=== PATIENT | female | born 1950 | race Caucasian/White ===

== ENCOUNTER 2022-10-02 19:06 | Inpatient (IN) ==
--- NOTE | 2022-10-02 20:04 | Internal Med History&Physical ---
HPI History of Present Illness Patient information: Note initiated : 10/02/22 at 8:01 pm Service Date, if different from initiated Date: [] Patient: Lucero Magallanes a 72 y/o F admitted on for referred for surgery. Chief Complaint: [right lower leg swelling and pain] Chief complaint: right lower leg swelling and pain History of present illness: Ms. Magallanes is a 72 year old F history of prediabetes, essential hypertensions, d yslipidemia, COPD, hypothyroidism, chronic kidney disease stage III, presenting with at least a month history of the right worse than left lower leg swelling and pain. She was in Dr. Chapa office earlier today and she was being referred to come to the hospital for surgery including incision and drainage. She is coming of 10 out of 10 pain of her right lower leg. She denies any fever chills or diaphoresis. There was a recent wound culture growing Staph aureus as well as Pseudomonas aeruginosa. Vital signs currently significant for tachycardia heart rate in the low 1 teens. Constitutional Constitutional: Absent chills, excessive sweating, fatigue, fever(s) or weakness EENT Eyes: Absent blurry vision, change in vision, loss of vision or other visual disturbances Ears: Absent decreased hearing or tinnitus Nose, mouth and throat: Absent abnormal hearing, dry mouth, headache(s), nasal congestion or sore throat Cardiovascular Cardiovascular: Absent chest pain, chest pain at rest, edema, irregular heart rhythm or palpatations Respiratory Respiratory: Absent cough, dyspnea or wheezing Gastrointestinal Gastrointestinal: Absent abdominal pain, constipation, diarrhea, nausea or vomiting Musculoskeletal Musculoskeletal: Absent back pain, deformity, limited range of motion, muscle cramps, muscle weakness or numbness Additional comments: Right lower leg pain Integumentary Integumentary: Present lesions, rash and wounds Neurological Neurological: Absent focal weakness, headache(s) or numbness Psychiatric Psychiatric: Absent anxiety, depression or hallucinations PFSH PFSH All Active Problems (Updated 10/02/22 @ 20:09 by Mark Williamson MD) Chronic kidney disease (CKD) stage G3a/A1, moderately decreased glomerular filtration rate (GFR) between 45-59 mL/min/1.73 square meter and albuminuria creatinine ratio less than 30 mg/g (Acute) Grimes classified according to extent of body surface involved (Acute) Large breasts (Acute) COPD (chronic obstructive pulmonary disease) (Chronic) Prediabetes (Chronic) Hypothyroidism (Chronic) Cellulitis (Chronic) Costochondritis (Chronic) Chest pain (Chronic) BMI greater than 40 (Chronic) Bartholin's cyst (Chronic) Vaginal candidiasis (Chronic) Insulin resistance (Chronic) Irregular cardiac rhythm (Chronic) Glaucoma (Chronic) Venereal wart (Chronic) Dysuria (Chronic) Anxiety (Chronic) Peripheral vascular disease, unspecified (Chronic) Depression (Chronic) Urinary incontinence (Chronic) Unspecified vitamin D deficiency (Chronic) Arthralgia (Chronic) Allergic rhinitis (Chronic) Personal history of colonic polyps (Chronic) Snoring (Chronic) Urinary frequency (Chronic) Lumbar back pain with radiculopathy affecting lower extremity (Chronic) Hyperlipidemia (Chronic) Encounter for long-term (current) use of other medications (Chronic) Menopausal menorrhagia (Chronic) Insomnia (Chronic) Neuralgia (Chronic) GERD (gastroesophageal reflux disease) (Chronic) Smoker (Chronic) Hypertension (Chronic) Menopausal symptoms (Chronic) IBS (irritable bowel syndrome) (Chronic) Edema (Chronic) Lumbar radiculopathy (Chronic) Other specified irregular menstruation (Chronic) Fatigue (Chronic) Cervical dysplasia (Chronic) Metabolic syndrome (Chronic) Hip pain (Chronic) Sleep apnea, obstructive (Chronic) Elbow pain, left (Acute) Acute pain of right shoulder due to trauma (Acute) Sprain of shoulder and upper arm (Acute) Lumbar back pain with radiculopathy affecting left lower extremity (Acute) Muscle spasm of back (Acute) Chronic pain (Chronic) Lumbar spondylosis (Chronic) Bronchitis (Chronic) Obesity (Chronic) Osteoarthritis (Chronic) Rectal bleeding (Acute) Constipation (Acute) Lumbar spondylolysis (Chronic) Lumbar stenosis with neurogenic claudication (Chronic) Sciatica of left side (Chronic) Anemia (Acute) Myofascial pain (Acute) Right upper quadrant abdominal abscess (Acute) Radiculopathy, lumbar region (Chronic) Cyst of lumbar facet joint (Acute) Greater trochanteric bursitis of right hip (Chronic) Cramp of muscle of left upper extremity (Acute) Weakness of left hand (Acute) Hand cramps (Acute) New onset of congestive heart failure (Acute) Dyspnea (Acute) Cellulitis (Acute) Compromised renal function (Acute) OAB (overactive bladder) (Chronic) Urge incontinence (Chronic) Medical History Allergic rhinitis Anxiety Arthralgia Bartholin's cyst abscess BMI greater than 40 Bronchitis Cellulitis Cervical dysplasia Chest pain Chronic pain COPD (chronic obstructive pulmonary disease) Costochondritis Cyst of lumbar facet joint Depression Dysuria Edema Encounter for long-term (current) use of other medications Fatigue GERD (gastroesophageal reflux disease) Glaucoma Greater trochanteric bursitis of right hip Hand cramps Hip pain Hyperlipidemia Hypertension Hypothyroidism IBS (irritable bowel syndrome) Insomnia Insulin resistance Irregular cardiac rhythm Lumbar back pain with radiculopathy affecting lower extremity Lumbar radiculopathy Lumbar spondylolysis Lumbar spondylosis Lumbar stenosis with neurogenic claudication Menopausal menorrhagia Menopausal symptoms Metabolic syndrome Neuralgia Obesity Osteoarthritis Other specified irregular menstruation Peripheral vascular disease, unspecified Personal history of colonic polyps Prediabetes Radiculopathy, lumbar region Sciatica of left side Smoker Snoring Unspecified vitamin D deficiency Urinary frequency Urinary incontinence Vaginal candidiasis Venereal wart Surgical History History of appendectomy History of cataract surgery Cataract and glaucoma surgery in 10/2015 Left eye surgery 02/2017 History of colonoscopy (~2006) History of colposcopy cryotherapy. Dr Draper repair tear 09/2008 History of surgery LESI #2 L5-S1 w/o ssed 12/02/1410/24 LESI #1 L5-S1 w/o sed 11/03/201412/23 LESI #2 L5-S1 w/o sed 12/29/201311/23 LESI #1 L5-S1 w/o sed 12/07/13 History of wrist fracture (~2010) ORIF Status post bilateral LASIK surgery (~04/2015) for glaucoma in [place] Family History Mother Breast cancer Diabetes mellitus Grandmother Myocardial infarct maternal Diabetes mellitus maternal Sister HTN (hypertension) Diabetes mellitus Myocardial infarct Liver cancer Grandfather Gallbladder cancer maternal Family/Other HTN (hypertension) Aunt Diabetes mellitus Aunt, Uncle. Cousin at age 40 from complications of Diabetes. Social History household members: alone lives independently: Yes occupational status: employed occupation: [employer] in [employer] other: 09/2012 physical activity: none smoking status: Current every day smoker tobacco type: cigarettes per day: 10 pack-years: 56 counseling given: patient declined alcohol intake frequency: a few times a week substance use type: does not use MEDS/ALLERGIES Home Medications and Allergies Home Medications Medication Instructions Recorded Confirmed Type brimonidine 0.2 % eye drops 1 drp ophthalmic (eye) BID 05/29/19 09/24/22 History dorzolamide 22.3 mg-timolol 6.8 1 drp ophthalmic (eye) BID 05/29/19 09/24/22 History mg/mL eye drops (Cosopt) latanoprost 0.005 % eye drops 1 drp ophthalmic (eye) QDAY 05/29/19 09/24/22 History (Xalatan) levocetirizine 5 mg tablet (Xyzal) 5 mg PO QDAY 05/29/19 09/24/22 History omeprazole 20 mg capsule,delayed 20 mg PO QDAY 05/29/19 09/24/22 History release pseudoephedrine-guaifenesin ER 60 1 tab PO QDAY PRN Congestion 05/29/19 09/24/22 History mg-600 mg tablet,extend release 12hr (Mucinex D) cyanocobalamin (vitamin B-12) 1,000 mcg IM QMONTH 06/13/21 09/26/22 History 1,000 mcg/mL injection solution losartan 100 1 tab PO QDAY #90 tabs 04/05/22 09/24/22 Rx mg-hydrochlorothiazide 25 mg tablet potassium chloride 10 mEq 20 meq PO QDAY #180 tabs 04/05/22 09/24/22 Rx tablet,extended release (K-Tab) cholecalciferol (vitamin D3) 1,250 1,250 mcg PO QWEEK #12 caps 04/12/22 09/26/22 Rx mcg (50,000 unit) capsule albuterol sulfate 90 mcg/actuation 2 puff inhalation Q4H PRN 06/07/22 09/24/22 Rx aerosol inhaler (Ventolin HFA) bronchospasm #8 grams folic acid 1 mg tablet 1 mg PO QDAY #90 tabs 07/24/22 09/24/22 Rx vibegron 75 mg tablet 75 mg PO QDAY #30 tabs 08/24/22 09/26/22 Rx fluticasone fur. 200 mcg-umeclid 1 inh inhalation QDAY #60 ea 08/29/22 09/24/22 Rx 62.5 mcg-vilant 25 mcg inhalat.powder (Trelegy Ellipta) hydrocodone 7.5 mg-acetaminophen 1 tab PO TID PRN pain #60 tabs 09/04/22 09/26/22 Rx 325 mg tablet atorvastatin 20 mg tablet 20 mg PO QDAY #90 tabs 09/20/22 09/24/22 Rx fenofibrate 160 mg tablet 160 mg PO QDAY 09/21/22 09/24/22 History furosemide 20 mg tablet (Lasix) 20 mg PO BID 09/21/22 09/24/22 History gabapentin 100 mg capsule 100 mg PO QID 09/21/22 09/24/22 History levothyroxine 50 mcg tablet 50 mcg PO QDAY 09/21/22 09/24/22 History magnesium oxide 400 mg PO BID 09/21/22 09/24/22 History methocarbamol 750 mg tablet 750 mg PO BID 09/21/22 09/24/22 History naproxen sodium 220 mg tablet 220 mg PO Q12H PRN Pain 09/21/22 09/26/22 History (Aleve) tramadol 50 mg tablet 50 mg PO TID PRN pain #60 tabs 09/24/22 Rx Allergies Allergy/AdvReac Type Severity Reaction Status Date / Time adhesive Allergy Intermediate Rash Verified 09/26/22 07:23 Sulfa (Sulfonamide AdvReac Intermediate Vomiting Verified 09/26/22 07:23 Antibiotics) EXAM Constitutional Vitals: Temp Pulse Resp BP Pulse Ox O2 Del Method 36.5 C 115 H 20 138/71 100 Room Air 10/02/22 19:06 10/02/22 19:06 10/02/22 19:06 10/02/22 19:06 10/02/22 19:06 10/02/22 19:06 General appearance: cooperative and no acute distress Head Head exam: Present atraumatic and normocephalic Eye Eye exam: Present EOMI and PERRL ENT ENT exam: Present mucous membranes moist, normal exam and normal external ear exam Neck Neck exam: Present normal inspection; Absent lymphadenopathy, tenderness or thyromegaly Respiratory Respiratory exam: Absent accessory muscle use, respiratory distress or wheezes Cardiovascular Cardiovascular exam: Present normal rate and rhythm; Absent JVD GI/Abdominal GI/Abdominal exam: Present normal bowel sounds and soft; Absent organomegaly or tenderness Extremities Exam Extremities exam: Present full ROM, normal capillary refill and tenderness; Absent normal inspection Additional comments: Right lower leg swelling, tenderness, warmth, covered by wound dressing Neurological Exam Neurological exam: Present alert, CN II-XII intact and oriented X3; Absent motor sensory deficit Psychiatric Psychiatric exam: Present normal affect and normal mood; Absent anxious or depressed Skin Skin exam: Present dry; Absent intact Additional comments: Right lower leg swelling, tenderness, warmth, covered by wound dressing A/P Assessment and plan (1) Cellulitis: Status: Chronic (2) COPD (chronic obstructive pulmonary disease): Status: Chronic (3) Hyperlipidemia: Status: Chronic Qualifiers: Hyperlipidemia type: unspecified Qualified Code(s): E78.5 - Hyperlipidemia, unspecified (4) Hypertension: Status: Chronic Qualifiers: Hypertension type: unspecified Qualified Code(s): I10 - Essential (primary) hypertension (5) Prediabetes: Status: Chronic (6) Hypothyroidism: Status: Chronic Qualifiers: Hypothyroidism type: unspecified Qualified Code(s): E03.9 - Hypothyroidism, unspecified (7) Chronic kidney disease (CKD) stage G3a/A1, moderately decreased glomerular filtration rate (GFR) between 45-59 mL/min/1.73 square meter and albuminuria creatinine ratio less than 30 mg/g: Status: Acute Narrative A/P Narrative: Assessment and Plans: 1. Right leg cellulitis: Inpatient med surg Dr. Cash to perform wound debridement on Saturday10/03/22 NPO after midnight with IV fluid cbc w/ auto diff daily Blood culture Intraoperative culture Lactic acid Procalcitonin level Meropenem Physical therapy 2. Prediabetes: HgA1c Hold oral hypoglycemics Insulin Lispro SSI AC HS Accu Check AC HS Hypoglycemia protocol Diabetic diet until midnight 3. Essential hypertension: Okay to resume oral antihypertensives 4. Hyperlipidemia: Resume statin therapy 5. COPD, stable: Resume bronchodilators 6. Hypothyroidism: Resume thyroid replacement therapy 7. Chronic kidney disease III: Avoid nephrotoxic agents Gentle IV fluid, see #1 CMP in the morning to trend kidney functions GI ppx: not currently indicated DVT ppx: chemical anticoagulants contraindicated due to upcoming surgery; SCDs contraindicated due to leg wound Code status: Full Prognosis: guarded Disposition: inpatient med surg; PT Time Spent With Patient Time: Total time spent is greater than 50% in coordination of care (as documented) at patient's floor/unit and/or counseling patient: Initial: Total time with patient: 55 - 74 minutes
[2022-10-02] MEDS ORDERED: morphine 4 MG/ML VIAL IV ONE (20:38)
[2022-10-02] MEDS ORDERED: 0.9 % SODIUM CHLORIDE 500 ML IV ONE (20:38)
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
[2022-10-02 21:29] LABS: Basophils # (Auto) 0.06 K/mcL (0.00-0.30); Basophils % (Auto) 0.6 % (0.0-2.0); Eosinophils # (Auto) 0.13 K/mcL (0.00-0.70); Eosinophils % (Auto) 1.2 % (0.0-7.0); Hematocrit 36.5 % (34.1-44.9); Hemoglobin 11.8 g/dL (11.2-15.7); Lymphocytes # (Auto) 1.97 K/mcL (1.50-4.80); Lymphocytes % (Auto) 18.1 % (15.5-49.0); Mean Cell Volume 98.4 fL (80.0-100.0); Mean Corpuscular HGB Conc 32.3 g/dL (31.0-36.0); Mean Platelet Volume 9.9 fL (8.8-12.5); Monocytes # (Auto) 1.27 K/mcL (0.10-0.90); Monocytes % (Auto) 11.7 % (1.0-12.0); Neutrophils % (Auto) 67.8 % (38.0-78.0); Platelet Count 361 K/mcL (140-440); RBC 3.71 M/mcL (3.59-5.38); Red Cell Distribution Width 12.5 % (11.5-14.5); WBC 10.9 K/mcL (4.5-11.0)
[2022-10-02 21:45] LABS: Blood Urea Nitrogen 18 mg/dL (8-23); Calcium 9.1 mg/dL (8.6-10.4); Carbon Dioxide 29 mmol/L (22-30); Chloride 99 mmol/L (96-108); Glomerular Filtration Rate 56; Glucose 104 mg/dL (70-105)
[2022-10-02] MEDS ORDERED: ONDANSETRON 4 MG/2 ML VIAL IV PRN (21:55)
[2022-10-02] MEDS ORDERED: DEXTROSE 31 GM ORAL.SUSP PO PRN (21:55)
[2022-10-02] MEDS ORDERED: traZODone HCL 50 MG TABLET PO PRN (21:55)
[2022-10-02] MEDS ORDERED: IPRATROPIUM/ALBUTEROL 3 ML AMPUL.NEB NEB PRN (21:55)
[2022-10-02] MEDS ORDERED: DEXTROSE 50% 50 ML VIAL IV PRN (21:55)
[2022-10-02] MEDS: 0.9 % SODIUM CHLORIDE 10 ML SYRINGE IV SCH (21:59)
[2022-10-02] MEDS: 0.9 % SODIUM CHLORIDE 1,000 ML IV SCH (21:59)
[2022-10-02] MEDS: INSULIN LISPRO 1 UNIT/0.01 ML UNIT SQ SCH (22:02)
[2022-10-02] MEDS: SENNOSIDES 1 TABLET PO SCH (22:37)
[2022-10-02] MEDS: DOCUSATE SODIUM 100 MG CAPSULE PO SCH (22:37)
[2022-10-02] MEDS: MEROPENEM 1 GM in 0.9 % SODIUM CHLORIDE 50 ML IV SCH (23:16)
[2022-10-02 23:28] LABS: Basophils # (Auto) 0.07 K/mcL (0.00-0.30); Basophils % (Auto) 0.7 % (0.0-2.0); Eosinophils # (Auto) 0.16 K/mcL (0.00-0.70); Eosinophils % (Auto) 1.5 % (0.0-7.0); Hematocrit 37.1 % (34.1-44.9); Hemoglobin 11.8 g/dL (11.2-15.7); Lymphocytes # (Auto) 2.23 K/mcL (1.50-4.80); Lymphocytes % (Auto) 21.3 % (15.5-49.0); Mean Cell Volume 100.5 fL (80.0-100.0); Mean Corpuscular HGB Conc 31.8 g/dL (31.0-36.0); Mean Platelet Volume 9.7 fL (8.8-12.5); Monocytes # (Auto) 1.17 K/mcL (0.10-0.90); Monocytes % (Auto) 11.2 % (1.0-12.0); Neutrophils % (Auto) 64.6 % (38.0-78.0); Platelet Count 372 K/mcL (140-440); RBC 3.69 M/mcL (3.59-5.38); Red Cell Distribution Width 12.5 % (11.5-14.5); WBC 10.5 K/mcL (4.5-11.0)
[2022-10-02 23:32] LABS: Erythrocyte Sedimentation Rate 40 mm/hr (0-30)
[2022-10-02] MEDS: ACETAMINOPHEN 325 MG TABLET PO PRN (23:32)
[2022-10-02 23:56] LABS: ALT/SGPT 25 U/L (<40); AST/SGOT 30 U/L (<32); Albumin 3.5 gm/dL (3.2-5.2); Alkaline Phosphatase 40 U/L (39-117); Bilirubin,Total 0.3 mg/dL (0.1-1.0); Blood Urea Nitrogen 17 mg/dL (8-23); Calcium 9.1 mg/dL (8.6-10.4); Carbon Dioxide 27 mmol/L (22-30); Chloride 100 mmol/L (96-108); Globulin 3.4 gm/dL (2.2-3.7); Glomerular Filtration Rate 56; Glucose 102 mg/dL (70-105)
[2022-10-03] MEDS: morphine 4 MG/ML VIAL IV PRN ×2 (02:12→11:25)
[2022-10-03] MEDS: 0.9 % SODIUM CHLORIDE 10 ML SYRINGE IV SCH ×3 (05:16→21:26)
[2022-10-03] MEDS: MEROPENEM 1 GM in 0.9 % SODIUM CHLORIDE 50 ML IV SCH ×3 (07:12→21:26)
[2022-10-03] MEDS: INSULIN LISPRO 1 UNIT/0.01 ML UNIT SQ SCH ×4 (07:17→20:14)
[2022-10-03] MEDS: DOCUSATE SODIUM 100 MG CAPSULE PO SCH ×2 (07:18→20:12)
--- NOTE | 2022-10-03 07:20 | General Surgery Consult Note ---
HPI Date of Consult Consult Date: 10/03/22 Requesting physician: Mark Williamson Primary Care Provider: Elizabeth Huang Consult Narrative Chief complaint: Cellulitis and PAIN Right lower leg 3rd degree burn cc:: I saw patient in room 111 this morning. Reviewed ER and Hospitalist notes and lab results. Appreciate work up and help given to this lady. Patient was seen in wound clinic and referred to ER for pre operative lab work and consent prior to surgical redebridement of deep 3rd degree burn of RIGHT lower leg. She went home to make arrangements and came to ER last night. She is NPO. CC: Mark Williamson MD Review of Systems All systems: reviewed and no additional remarkable complaints except as stated PFSH PFSH All Active Problems Cellulitis of leg, right (Acute) Chronic kidney disease (CKD) stage G3a/A1, moderately decreased glomerular filtration rate (GFR) between 45-59 mL/min/1.73 square meter and albuminuria creatinine ratio less than 30 mg/g (Acute) Blackman classified according to extent of body surface involved (Acute) Large breasts (Acute) COPD (chronic obstructive pulmonary disease) (Chronic) Prediabetes (Chronic) Hypothyroidism (Chronic) Cellulitis (Chronic) Costochondritis (Chronic) Chest pain (Chronic) BMI greater than 40 (Chronic) Bartholin's cyst (Chronic) Vaginal candidiasis (Chronic) Insulin resistance (Chronic) Irregular cardiac rhythm (Chronic) Glaucoma (Chronic) Venereal wart (Chronic) Dysuria (Chronic) Anxiety (Chronic) Peripheral vascular disease, unspecified (Chronic) Depression (Chronic) Urinary incontinence (Chronic) Unspecified vitamin D deficiency (Chronic) Arthralgia (Chronic) Allergic rhinitis (Chronic) Personal history of colonic polyps (Chronic) Snoring (Chronic) Urinary frequency (Chronic) Lumbar back pain with radiculopathy affecting lower extremity (Chronic) Hyperlipidemia (Chronic) Encounter for long-term (current) use of other medications (Chronic) Menopausal menorrhagia (Chronic) Insomnia (Chronic) Neuralgia (Chronic) GERD (gastroesophageal reflux disease) (Chronic) Smoker (Chronic) Hypertension (Chronic) Menopausal symptoms (Chronic) IBS (irritable bowel syndrome) (Chronic) Edema (Chronic) Lumbar radiculopathy (Chronic) Other specified irregular menstruation (Chronic) Fatigue (Chronic) Cervical dysplasia (Chronic) Metabolic syndrome (Chronic) Hip pain (Chronic) Sleep apnea, obstructive (Chronic) Elbow pain, left (Acute) Acute pain of right shoulder due to trauma (Acute) Sprain of shoulder and upper arm (Acute) Lumbar back pain with radiculopathy affecting left lower extremity (Acute) Muscle spasm of back (Acute) Chronic pain (Chronic) Lumbar spondylosis (Chronic) Bronchitis (Chronic) Obesity (Chronic) Osteoarthritis (Chronic) Rectal bleeding (Acute) Constipation (Acute) Lumbar spondylolysis (Chronic) Lumbar stenosis with neurogenic claudication (Chronic) Sciatica of left side (Chronic) Anemia (Acute) Myofascial pain (Acute) Right upper quadrant abdominal abscess (Acute) Radiculopathy, lumbar region (Chronic) Cyst of lumbar facet joint (Acute) Greater trochanteric bursitis of right hip (Chronic) Cramp of muscle of left upper extremity (Acute) Weakness of left hand (Acute) Hand cramps (Acute) New onset of congestive heart failure (Acute) Dyspnea (Acute) Cellulitis (Acute) Compromised renal function (Acute) OAB (overactive bladder) (Chronic) Urge incontinence (Chronic) Medical History Allergic rhinitis Anxiety Arthralgia Bartholin's cyst abscess BMI greater than 40 Bronchitis Cellulitis Cervical dysplasia Chest pain Chronic pain COPD (chronic obstructive pulmonary disease) Costochondritis Cyst of lumbar facet joint Depression Dysuria Edema Encounter for long-term (current) use of other medications Fatigue GERD (gastroesophageal reflux disease) Glaucoma Greater trochanteric bursitis of right hip Hand cramps Hip pain Hyperlipidemia Hypertension Hypothyroidism IBS (irritable bowel syndrome) Insomnia Insulin resistance Irregular cardiac rhythm Lumbar back pain with radiculopathy affecting lower extremity Lumbar radiculopathy Lumbar spondylolysis Lumbar spondylosis Lumbar stenosis with neurogenic claudication Menopausal menorrhagia Menopausal symptoms Metabolic syndrome Neuralgia Obesity Osteoarthritis Other specified irregular menstruation Peripheral vascular disease, unspecified Personal history of colonic polyps Prediabetes Radiculopathy, lumbar region Sciatica of left side Smoker Snoring Unspecified vitamin D deficiency Urinary frequency Urinary incontinence Vaginal candidiasis Venereal wart Surgical History History of appendectomy History of cataract surgery Cataract and glaucoma surgery in 10/2015 Left eye surgery 02/2017 History of colonoscopy (~2006) History of colposcopy cryotherapy. Dr Draper repair tear 09/2008 History of surgery LESI #2 L5-S1 w/o ssed 12/02/1410/24 LESI #1 L5-S1 w/o sed 11/03/201412/23 LESI #2 L5-S1 w/o sed 12/29/201311/23 LESI #1 L5-S1 w/o sed 12/07/13 History of wrist fracture (~2010) ORIF Status post bilateral LASIK surgery (~04/2015) for glaucoma in [place] Family History Mother Breast cancer Diabetes mellitus Grandmother Myocardial infarct maternal Diabetes mellitus maternal Sister HTN (hypertension) Diabetes mellitus Myocardial infarct Liver cancer Grandfather Gallbladder cancer maternal Family/Other HTN (hypertension) Aunt Diabetes mellitus Aunt, Uncle. Cousin at age 40 from complications of Diabetes. Social History household members: alone lives independently: Yes occupational status: employed occupation: [employer] in [employer] other: 09/2012 physical activity: none smoking status: Current every day smoker tobacco type: cigarettes per day: 10 pack-years: 56 counseling given: patient declined alcohol intake frequency: a few times a week substance use type: does not use MEDS/ALLERGIES Home Medications and Allergies Home Medications Medication Instructions Recorded Confirmed Type brimonidine 0.2 % eye drops 1 drp ophthalmic (eye) BID 05/29/19 10/02/22 History dorzolamide 22.3 mg-timolol 6.8 1 drp ophthalmic (eye) BID 05/29/19 10/02/22 History mg/mL eye drops (Cosopt) latanoprost 0.005 % eye drops 1 drp ophthalmic (eye) QDAY 05/29/19 10/02/22 History (Xalatan) levocetirizine 5 mg tablet (Xyzal) 5 mg PO QDAY 05/29/19 10/02/22 History omeprazole 20 mg capsule,delayed 20 mg PO QDAY 05/29/19 10/02/22 History release pseudoephedrine-guaifenesin ER 60 1 tab PO QDAY PRN Congestion 05/29/19 10/02/22 History mg-600 mg tablet,extend release 12hr (Mucinex D) cyanocobalamin (vitamin B-12) 1,000 mcg IM QMONTH 06/13/21 10/02/22 History 1,000 mcg/mL injection solution losartan 100 1 tab PO QDAY #90 tabs 04/05/22 10/02/22 Rx mg-hydrochlorothiazide 25 mg tablet potassium chloride 10 mEq 20 meq PO QDAY #180 tabs 04/05/22 10/02/22 Rx tablet,extended release (K-Tab) cholecalciferol (vitamin D3) 1,250 1,250 mcg PO QWEEK #12 caps 04/12/22 10/02/22 Rx mcg (50,000 unit) capsule albuterol sulfate 90 mcg/actuation 2 puff inhalation Q4H PRN 06/07/22 10/02/22 Rx aerosol inhaler (Ventolin HFA) bronchospasm #8 grams folic acid 1 mg tablet 1 mg PO QDAY #90 tabs 07/24/22 10/02/22 Rx vibegron 75 mg tablet 75 mg PO QDAY #30 tabs 08/24/22 10/02/22 Rx fluticasone fur. 200 mcg-umeclid 1 inh inhalation QDAY #60 ea 08/29/22 10/02/22 Rx 62.5 mcg-vilant 25 mcg inhalat.powder (Trelegy Ellipta) hydrocodone 7.5 mg-acetaminophen 1 tab PO TID PRN pain #60 tabs 09/04/22 10/02/22 Rx 325 mg tablet atorvastatin 20 mg tablet 20 mg PO QDAY #90 tabs 09/20/22 10/02/22 Rx fenofibrate 160 mg tablet 160 mg PO QDAY 09/21/22 10/02/22 History furosemide 20 mg tablet (Lasix) 20 mg PO BID 09/21/22 10/02/22 History gabapentin 100 mg capsule 100 mg PO QID 09/21/22 10/02/22 History levothyroxine 50 mcg tablet 50 mcg PO QDAY 09/21/22 10/02/22 History magnesium oxide 400 mg PO BID 09/21/22 10/02/22 History methocarbamol 750 mg tablet 750 mg PO BID 09/21/22 10/02/22 History naproxen sodium 220 mg tablet 220 mg PO Q12H PRN Pain 09/21/22 10/02/22 History (Aleve) tramadol 50 mg tablet 50 mg PO TID PRN pain #60 tabs 09/24/22 10/02/22 Rx Allergies Allergy/AdvReac Type Severity Reaction Status Date / Time adhesive Allergy Intermediate Rash Verified 09/26/22 07:23 Sulfa (Sulfonamide AdvReac Intermediate Vomiting Verified 09/26/22 07:23 Antibiotics) Physical Examination Vital Signs Vital signs: Temp Pulse Resp BP Pulse Ox O2 Del Method 97.1 F 54 L 12 119/55 93 Room Air, CPAP 10/03/22 03:23 10/03/22 03:23 10/03/22 03:23 10/03/22 03:23 10/03/22 03:23 10/03/22 03:23 General physical appearance General physical exam: well developed, well nourished, moderate pain, chronically ill, obese and other (COPD. on BiPap at home.) Eyes Eye exam: PERRL ENT ENT exam: normal pinna, normal mucosa and no congestion Head Head exam IM: Present atraumatic and normocephalic Neck Neck exam: no masses and no venous distension Cardiovascular Cardiovascular exam IM: Present normal rate and rhythm Respiratory Respiratory exam: other (COPD . Morbid obesity. Diminished air entry bases. (Her baseline)) Abdomen Abdomen: Present soft, non tender and bowel sounds Integumentary Integumentary: Present other (CHRONIC Deep dermal and adipose near circumferential blackman RIGHT lower leg. Dense adherent slough with cellulits.) Neurologic Neurologic: Present normal coordination and normal sensation Musculoskeletal Musculoskeletal: Present normal gait Psychiatric Psychiatric: Present oriented to time, oriented to person, oriented to place, speech is normal and memory intact Results Labs 10/02/22 22:54 10/02/22 22:48 Labs: Abnormal lab results 10/02/22 10/02/22 10/02/22 Range/Units 20:46 20:47 22:54 MCV 100.5 H (80.0-100.0) fL Immature Gran % (Auto) 0.6 H 0.7 H (0.0-0.5) % [place] # (Auto) 1.27 H 1.17 H (0.10-0.90) K/mcL Immature Gran # 0.06 H 0.07 H (0.00-0.05) K/mcl ESR 40 H (0-30) mm/hr Procalcitonin 0.14 H (<0.10) ng/mL 10/02/22 Range/Units 22:54 MCV (80.0-100.0) fL Immature Gran % (Auto) (0.0-0.5) % [place] # (Auto) (0.10-0.90) K/mcL Immature Gran # (0.00-0.05) K/mcl ESR (0-30) mm/hr Procalcitonin 0.14 H (<0.10) ng/mL Diabetes panel 10/02/22 10/02/22 Range/Units 20:46 22:48 Sodium 137 137 (133-145) mmol/L Potassium 4.3 3.8 (3.3-5.1) mmol/L Chloride 99 100 (96-108) mmol/L Carbon Dioxide 29 27 (22-30) mmol/L BUN 18 17 (8-23) mg/dL Creatinine 1.0 1.0 (0.6-1.1) mg/dL Glucose 104 102 (70-105) mg/dL Calcium 9.1 9.1 (8.6-10.4) mg/dL AST 30 (<32) U/L ALT 25 (<40) U/L Alkaline Phosphatase 40 (39-117) U/L Total Protein 6.9 (5.9-8.4) gm/dL Albumin 3.5 (3.2-5.2) gm/dL Calcium panel 10/02/22 10/02/22 Range/Units 20:46 22:48 Calcium 9.1 9.1 (8.6-10.4) mg/dL Albumin 3.5 (3.2-5.2) gm/dL Pituitary panel 10/02/22 10/02/22 Range/Units 20:46 22:48 Sodium 137 137 (133-145) mmol/L Potassium 4.3 3.8 (3.3-5.1) mmol/L Chloride 99 100 (96-108) mmol/L Carbon Dioxide 29 27 (22-30) mmol/L BUN 18 17 (8-23) mg/dL Creatinine 1.0 1.0 (0.6-1.1) mg/dL Glucose 104 102 (70-105) mg/dL Calcium 9.1 9.1 (8.6-10.4) mg/dL Adrenal panel 10/02/22 10/02/22 Range/Units 20:46 22:48 Sodium 137 137 (133-145) mmol/L Potassium 4.3 3.8 (3.3-5.1) mmol/L Chloride 99 100 (96-108) mmol/L Carbon Dioxide 29 27 (22-30) mmol/L BUN 18 17 (8-23) mg/dL Creatinine 1.0 1.0 (0.6-1.1) mg/dL Glucose 104 102 (70-105) mg/dL Calcium 9.1 9.1 (8.6-10.4) mg/dL Total Bilirubin 0.3 (0.1-1.0) mg/dL AST 30 (<32) U/L ALT 25 (<40) U/L Alkaline Phosphatase 40 (39-117) U/L Total Protein 6.9 (5.9-8.4) gm/dL Albumin 3.5 (3.2-5.2) gm/dL All other labs normal. A/P Narrative A/P Narrative: Assessment: READMITTED for surgical debridement (Pulse lavage) Deep blackman RIGHT lower leg with slough / cellulitis. Plan of Treatment: Plan: Surgical debridement and pulse lavage irrigation. Spoke with patient again about plan of care. She understands and agrees to proceed . Time Spent With Patient Time: Total time spent is greater than 50% in coordination of care (as documented) at patient's floor/unit and/or counseling patient: Initial: Total time with patient: 40 - 54 minutes
[2022-10-03] MEDS: ACETAMINOPHEN 325 MG TABLET PO PRN (07:21)
[2022-10-03 07:37] LABS: ALT/SGPT 27 U/L (<40); AST/SGOT 44 U/L (<32); Albumin 3.1 gm/dL (3.2-5.2); Albumin/Globulin Ratio 1.1 (1.0-2.3); Alkaline Phosphatase 36 U/L (39-117); Bilirubin,Total 0.3 mg/dL (0.1-1.0); Blood Urea Nitrogen 16 mg/dL (8-23); Calcium 8.4 mg/dL (8.6-10.4); Carbon Dioxide 28 mmol/L (22-30); Chloride 101 mmol/L (96-108); Globulin 2.7 gm/dL (2.2-3.7); Glomerular Filtration Rate 64; Glucose 83 mg/dL (70-105)
[2022-10-03 07:39] LABS: Basophils # (Auto) 0.04 K/mcL (0.00-0.30); Basophils % (Auto) 0.5 % (0.0-2.0); Eosinophils # (Auto) 0.21 K/mcL (0.00-0.70); Eosinophils % (Auto) 2.8 % (0.0-7.0); Hematocrit 35.2 % (34.1-44.9); Mean Cell Volume 101.1 fL (80.0-100.0); Mean Corpuscular HGB Conc 31.3 g/dL (31.0-36.0); Mean Platelet Volume 9.8 fL (8.8-12.5); Monocytes # (Auto) 1.06 K/mcL (0.10-0.90); Monocytes % (Auto) 14.3 % (1.0-12.0); Neutrophils % (Auto) 54.9 % (38.0-78.0); Platelet Count 339 K/mcL (140-440); RBC 3.48 M/mcL (3.59-5.38); Red Cell Distribution Width 12.5 % (11.5-14.5); WBC 7.4 K/mcL (4.5-11.0)
[2022-10-03 08:04] LABS: Estimated Average Glucose(eAG) 126 mg/dL
[2022-10-03] MEDS ORDERED: ePHEDrine 50 MG/5 ML SYRINGE (ANEST) IV ONE (09:40)
[2022-10-03] MEDS ORDERED: PROPOFOL 200 MG/20 ML VIAL IV ONE (09:40)
[2022-10-03] MEDS ORDERED: DEXAMETHASONE 10 MG/ML VIAL ONE (09:40)
[2022-10-03] MEDS ORDERED: MAGNESIUM SULFATE 2 GM/50 ML BAG IV ONE (09:40)
[2022-10-03] MEDS ORDERED: fentaNYL 100 MCG/2 ML VIAL IV ONE (09:40)
[2022-10-03] MEDS ORDERED: ONDANSETRON 4 MG/2 ML VIAL ONE (09:40)
[2022-10-03] MEDS ORDERED: LIDOCAINE HCL/PF 100 MG/5 ML SYRINGE IV ONE (09:40)
[2022-10-03] MEDS ORDERED: KETAMINE 50 MG/ML Syringe (ANEST) IV ONE (09:40)
[2022-10-03] MEDS ORDERED: NALOXONE HCL 0.4 MG/ML VIAL IV PRN (10:01)
[2022-10-03] MEDS ORDERED: ACETAMINOPHEN 1,000 MG/100 ML BAG IV ONE (10:01)
[2022-10-03] MEDS ORDERED: LACTATED RINGERS 250 ML IV PRN (10:01)
[2022-10-03] MEDS ORDERED: ONDANSETRON 4 MG/2 ML VIAL IV PRN (10:01)
[2022-10-03] MEDS ORDERED: MEPERIDINE 25 MG/ML VIAL IV PRN (10:01)
[2022-10-03] MEDS ORDERED: IPRATROPIUM/ALBUTEROL 3 ML AMPUL.NEB NEB PRN (10:01)
[2022-10-03] MEDS ORDERED: PROMETHAZINE 25 MG/ML VIAL IV PRN (10:01)
[2022-10-03] MEDS ORDERED: diphenhydrAMINE 50 MG/ML VIAL IV PRN (10:01)
[2022-10-03] MEDS ORDERED: LACTATED RINGERS 1,000 ML IV SCH (10:15)
[2022-10-03] MEDS ORDERED: ACETAMINOPHEN 325 MG TABLET PO PRN (10:24)
--- NOTE | 2022-10-03 10:24 | General Surgery Procedure Note ---
Date of procedure: Note initiated : 10/03/22 at 10:18 am Service Date, if different from initiated Date: [] Pre-op diagnosis: Open BURN wounds RIGHT lower leg and above ankle. Post-op diagnosis: same Procedure: Repeat debridement and pulse lavage irrigation Findings: Near circumferential deep 3rd degree blackman / cellulitis . s/p initial debridement 18 x 8 x 1.5 CM Grafts/Implants: NONE Anesthesia: EMMA Surgeon: Pritesh Cash Estimated blood loss: 30 Pathology: none sent Description of procedure: Repeat debridement, pulse lavage irrigation packing. Condition: stable Disposition: PACU
[2022-10-03] MEDS: fentaNYL 100 MCG/2 ML VIAL IV PRN ×4 (10:29→10:44)
[2022-10-03] MEDS ORDERED: SILVER SULFADIAZINE CREAM.TOP 25GM TOPICAL ONE (10:31)
[2022-10-03] MEDS: 0.9 % SODIUM CHLORIDE 1,000 ML IV SCH (11:25)
[2022-10-03] MEDS ORDERED: PSEUDOEPHEDRINE GUAIFENESIN PO PRN (11:36)
[2022-10-03] MEDS ORDERED: ALBUTEROL SULFATE 60 PUFF INHALER INH PRN (11:36)
--- NOTE | 2022-10-03 11:52 | Internal Med Progress Note ---
SUBJECTIVE Subjective Patient information: Note initiated : 10/03/22 at 11:45 am Service Date, if different from initiated Date: [] Patient: Lucero Magallanes 72 y/o F admitted on 10/02/22 for referred for surgery. Chief Complaint: [] Interval history: Ms. Magallanes is a 72 year old F history of prediabetes, essential hypertensions, dyslipidemia, COPD, hypothyroidism, chronic kidney disease stage III, presenting with at least a month history of the right worse than left lower leg swelling and pain. She was in Dr. Chapa office earlier today and she was being referred to come to the hospital for surgery including incision and drainage. She is coming of 10 out of 10 pain of her right lower leg. She denies any fever chills or diaphoresis. There was a recent wound culture growing Staph aureus as well as Pseudomonas aeruginosa. Vital signs currently significant for tachycardia heart rate in the low 1 teens. 10/03: s/p repeat wound debridement by Dr. Cash earlier this morning. Cultures no growth to date. Patient is complaining of severe right lower leg pain. Denies fever, chills, or sweating. Continue meropenem while monitoring for culture results. Will start mist treatment tomorrow. Rest of the surgical management as per Dr. Negrete. Continue narcotics as needed for pain control. Physical therapy evaluation and treatment for placement pending. Constitutional Vitals: Vital Signs Temp Pulse Resp BP Pulse Ox O2 Del Method O2 Flow Rate 36.8 C 80 13 169/144 92 Room Air 0 10/03/22 10:57 10/03/22 10:57 10/03/22 10:57 10/03/22 10:56 10/03/22 10:57 10/03/22 10:57 10/03/22 10:57 Period Temp Pulse Resp BP Sys/Hernandez Pulse Ox O2 Del Method O2 Flow Rate Last 24 Hr 36.2 C-37.3 C 54-115 7-21 95-173/55-144 82-100 Room Air-Simple Mask 0-6 Intake and Output 10/02/22 10/03/22 10/03/22 19:59 03:59 11:59 Intake Total 550 1750 Output Total 200 550 Balance 350 1200 Weight 113.398 kg 110.903 kg Intake & Output: Intake & Output 10/02/22 10/03/22 10/03/22 19:59 03:59 11:59 Intake Total 550 1750 Output Total 200 550 Balance 350 1200 Weight 113.398 kg 110.903 kg Intake: IV 550 1050 Sodium Chloride 0.9% 1,000 ml @ 1000 75 mls/hr IV .[id number] [facility] Rx#: [id number] Sodium Chloride 0.9% 500 ml @ 500 Wide Open IV BOLUS ONE Rx#: [id number] Merrem 1 gm In Sodium Chloride 50 50 0.9% 50 ml @ 100 mls/hr IV Q8H [facility] Rx#:[id number] Oral 0 100 IV - Manual Only 600 Output: Void Amount 200 500 Estimated Blood Loss 50 Other: Urine Appearance Clear Clear Urine Color Yellow Dark Yellow Urine Odor Normal Head Head exam: Present atraumatic and normal inspection Eye Eye exam: Present normal appearance ENT ENT exam: Present mucous membranes moist, normal exam and normal external ear exam Neck Neck exam: Present normal inspection Respiratory Respiratory exam: Present normal respiratory exam Cardiovascular Cardiovascular exam: Present normal rate and rhythm GI/Abdominal GI/Abdominal exam: Present normal bowel sounds Extremities Exam Extremities exam: Present full ROM; Absent normal inspection Additional comments: Right lower leg covered by wound dressing Back Exam Back exam: Present normal inspection Neurological Exam Neurological exam: Present alert and oriented X3 Skin Skin exam: Present warm; Absent intact Additional comments: Right lower leg covered by wound dressing OBJ DATA Labs 10/03/22 05:18 10/03/22 05:18 Labs: Abnormal Lab Results 10/03/22 10/03/22 10/02/22 05:18 05:18 22:54 RBC 3.48 L Hgb 11.0 L MCV 101.1 H Immature Gran % (Auto) [place] % (Auto) 14.3 H [place] # (Auto) 1.06 H Immature Gran # ESR Calcium 8.4 L AST 44 H Alkaline Phosphatase 36 L Total Protein 5.8 L Albumin 3.1 L Procalcitonin 0.14 H 10/02/22 10/02/22 10/02/22 22:54 20:47 20:46 RBC Hgb MCV 100.5 H Immature Gran % (Auto) 0.7 H 0.6 H [place] % (Auto) [place] # (Auto) 1.17 H 1.27 H Immature Gran # 0.07 H 0.06 H ESR 40 H Calcium AST Alkaline Phosphatase Total Protein Albumin Procalcitonin 0.14 H Meds: Medications Acetaminophen (Acetaminophen 325 Mg Tablet) 650 mg PO Q6HP PRN; Protocol PRN Reason: Per Pain Protocol/Fever > 101 Last Admin: 10/03/22 07:21 Dose: 650 mg Hydrocodone Bitart/Acetaminophen (Hydrocodone/Apap 7.5/325mg Tablet) 1 tab PO TIDP PRN PRN Reason: Pain Albuterol Sulfate (Albuterol Sulfate 60 Puff Inhaler) 2 puff INH Q4HP PRN PRN Reason: bronchospasm Albuterol/Ipratropium (Ipratropium/Albuterol 3 Ml Ampul.Neb) 3 ml NEB Q4HRT PRN PRN Reason: Wheezing Atorvastatin Calcium (Atorvastatin 20 Mg Tablet) 20 mg PO QDAY [facility] Brimonidine Tartrate (Brimonidine Ophth Drops 1 Gtt Bottle 5ml) 1 gtt OU BID [facility] Dextrose (Dextrose 50% 50 Ml Vial) 0 ml IV UD PRN PRN Reason: Per Sliding Scale Diagnostic Test (Pha) (Accu-Chek 1 Each Strip) 1 each FS ACHS [facility] Last Admin: 10/03/22 11:21 Dose: Not Given Docusate Sodium (Docusate Sodium 100 Mg Capsule) 100 mg PO BID [facility] Last Admin: 10/03/22 07:18 Dose: Not Given Folic Acid (Folic Acid 1 Mg Tablet) 1 mg PO QDAY [facility] Gabapentin (Gabapentin 100 Mg Capsule) 100 mg PO QID [facility] Glucose (Dextrose 31 Gm Oral.Susp) 15 gm PO PRN PRN PRN Reason: Hypoglycemia HCTZ/Losartan Potassium (Losartan/Hctz 100/25 Tablet) 1 tab PO QDAY [facility] Meropenem 1 gm/ Sodium (Chloride) 50 mls @ 100 mls/hr IV Q8H [facility]; Protocol Last Infusion: 10/03/22 08:00 Dose: Infused Sodium Chloride (Sodium Chloride 0.9%) 1,000 mls @ 75 mls/hr IV .[id number] [facility] Last Admin: 10/03/22 11:25 Dose: 75 mls/hr Insulin Human Lispro (Insulin Lispro 1 Unit/0.01 Ml Unit) 0 unit SQ ACHS [facility]; Protocol Last Admin: 10/03/22 11:21 Dose: Not Given Latanoprost (Latanoprost Ophth Drops 2.5ml Bottle) 1 gtt OU QDAY [facility] Levothyroxine Sodium (Levothyroxine 50 Mcg Tablet) 50 mcg PO QDAY [facility] Methocarbamol (Methocarbamol 750 Mg Tablet) 750 mg PO BID [facility] Morphine Sulfate (Morphine 4 Mg/Ml Vial) 4 mg IV Q4HP PRN; Protocol PRN Reason: Per Pain Protocol Last Admin: 10/03/22 11:25 Dose: 4 mg Naproxen (Naproxen (Pp) 220mg Tab Bottle (#24)) tablet PO Q12H PRN PRN Reason: Pain Non-Formulary Medication (Cholecalciferol (Vitamin D3)) 1,250 mcg PO QWEEK [facility] Non-Formulary Medication (Dorzolamide-Timolol [Cosopt]) 1 drp OPHTHALMIC BID [facility] Non-Formulary Medication (Fenofibrate) 160 mg PO QDAY [facility] Non-Formulary Medication (Lhigojbxyht-Zmkbpukgy-Wdmirkdo [Trelegy Ellipta]) 1 inh INHALATION QDAY [facility] Non-Formulary Medication (Levocetirizine [Xyzal]) 5 mg PO QDAY [facility] Non-Formulary Medication (Magnesium Oxide) 400 mg PO BID [facility] Non-Formulary Medication (Pseudoephedrine-Guaifenesin [Mucinex D]) 1 tab PO QDAY PRN PRN Reason: Congestion Non-Formulary Medication (Vibegron) 75 mg PO QDAY [facility] Omeprazole (Omeprazole 20 Mg Capsule) 20 mg PO QDAY [facility] Ondansetron HCl (Ondansetron 4 Mg/2 Ml Vial) 4 mg IV Q6HP PRN PRN Reason: Nausea And Vomiting Senna (Sennosides 1 Tablet) 2 tab PO HS [facility] Last Admin: 10/02/22 22:37 Dose: Not Given Sodium Chloride (0.9 % Sodium Chloride 10 Ml Syringe) 10 ml IV Q8 [facility] Last Admin: 10/03/22 05:16 Dose: Not Given Tramadol HCl (Tramadol (Pp) 50 Mg Tablet (#4)) 50 mg PO TID PRN PRN Reason: pain Trazodone HCl (Trazodone Hcl 50 Mg Tablet) 25 mg PO HSP PRN PRN Reason: Insomnia A/P Assessment and plan (1) Cellulitis: Status: Chronic (2) COPD (chronic obstructive pulmonary disease): Status: Chronic (3) Hyperlipidemia: Status: Chronic Qualifiers: Hyperlipidemia type: unspecified Qualified Code(s): E78.5 - Hyperli pidemia, unspecified (4) Hypertension: Status: Chronic Qualifiers: Hypertension type: unspecified Qualified Code(s): I10 - Essential (primary) hypertension (5) Prediabetes: Status: Chronic (6) Hypothyroidism: Status: Chronic Qualifiers: Hypothyroidism type: unspecified Qualified Code(s): E03.9 - Hypothyroidism, unspecified (7) Chronic kidney disease (CKD) stage G3a/A1, moderately decreased glomerular filtration rate (GFR) between 45-59 mL/min/1.73 square meter and albuminuria creatinine ratio less than 30 mg/g: Status: Acute Narrative A/P Narrative: Assessment and Plans: 1. Right leg cellulitis: Inpatient med surg s/p repeat wound debridement by Dr. Cash. Will start mist treatment tomorrow. Rest of the surgical management as per Dr. Negrete cbc w/ auto diff daily Blood culture, no growth to date Intraoperative culture pending Lactic acid 1.4 Procalcitonin level 0.14 Continue meropenem while monitoring for culture results Physical therapy evaluation and treatment 2. Prediabetes: HgA1c 6.0 Hold oral hypoglycemics Insulin Lispro SSI AC HS Accu Check AC HS Hypoglycemia protocol Resume diabetic diet 3. Essential hypertension: Okay to resume oral antihypertensives 4. Hyperlipidemia: Resume statin therapy 5. COPD, stable: Resume bronchodilators 6. Hypothyroidism: Resume thyroid replacement therapy 7. Chronic kidney disease III: Avoid nephrotoxic agents Gentle IV fluid, see #1 CMP in the morning to trend kidney functions GI ppx: not currently indicated DVT ppx: chemical anticoagulants when cleared by surgical team Code status: Full Prognosis: guarded Disposition: inpatient med surg; PT Plan of Treatment: Plan: Surgical debridement and pulse lavage irrigation. Spoke with patient again about plan of care. She understands and agrees to proceed . Time Spent With Patient Time: Total time spent is greater than 50% in coordination of care (as documented) at patient's floor/unit and/or counseling patient: Subsequent: Total time with patient: 35 - 49 minutes
[2022-10-03] MEDS: GABAPENTIN 100 MG CAPSULE PO SCH ×3 (12:32→20:12)
[2022-10-03] MEDS: traMADol 50 MG TABLET PO PRN (12:32)
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
[2022-10-03] MEDS ORDERED: 0.9 % SODIUM CHLORIDE 10 ML SYRINGE IV SCH (14:00)
[2022-10-03] MEDS: HYDROCODONE/APAP 7.5/325MG TABLET PO PRN (14:22)
[2022-10-03] MEDS: METHOCARBAMOL 750 MG TABLET PO SCH (20:12)
[2022-10-03] MEDS: NAPROXEN 250 MG TABLET PO PRN (20:12)
[2022-10-03] MEDS: SENNOSIDES 1 TABLET PO SCH (20:12)
[2022-10-03] MEDS: MAGNESIUM OXIDE 400 MG TABLET PO SCH (20:12)
[2022-10-03] MEDS: [UNRECOGNIZED DRUG - OTHER] INH SCH (20:13)
[2022-10-03] MEDS: DORZOLAMIDE TIMOLOL OP SCH (20:50)
[2022-10-03] MEDS: BRIMONIDINE OPHTH DROPS 1 GTT BOTTLE 5ML OU SCH (20:50)
[2022-10-04] MEDS: 0.9 % SODIUM CHLORIDE 1,000 ML IV SCH (00:57)
[2022-10-04] MEDS: HYDROCODONE/APAP 7.5/325MG TABLET PO PRN ×2 (03:04→11:27)
[2022-10-04] MEDS: MEROPENEM 1 GM in 0.9 % SODIUM CHLORIDE 50 ML IV SCH ×3 (05:30→21:07)
[2022-10-04] MEDS: 0.9 % SODIUM CHLORIDE 10 ML SYRINGE IV SCH ×3 (05:31→21:08)
[2022-10-04] MEDS: LEVOTHYROXINE 50 MCG TABLET PO SCH (06:49)
[2022-10-04] MEDS: OMEPRAZOLE 20 MG CAPSULE PO SCH (06:49)
[2022-10-04 06:59] LABS: Basophils # (Auto) 0.03 K/mcL (0.00-0.30); Basophils % (Auto) 0.4 % (0.0-2.0); Eosinophils # (Auto) 0 K/mcL (0.00-0.70); Eosinophils % (Auto) 0 % (0.0-7.0); Hemoglobin 11.2 g/dL (11.2-15.7); Lymphocytes # (Auto) 1.59 K/mcL (1.50-4.80); Lymphocytes % (Auto) 20.7 % (15.5-49.0); Mean Platelet Volume 10.2 fL (8.8-12.5); Monocytes # (Auto) 0.74 K/mcL (0.10-0.90); Monocytes % (Auto) 9.6 % (1.0-12.0); Neutrophils % (Auto) 68.4 % (38.0-78.0); Platelet Count 355 K/mcL (140-440); Red Cell Distribution Width 12.3 % (11.5-14.5); WBC 7.7 K/mcL (4.5-11.0)
[2022-10-04] MEDS: INSULIN LISPRO 1 UNIT/0.01 ML UNIT SQ SCH ×4 (07:07→21:09)
[2022-10-04] MEDS: NAPROXEN 250 MG TABLET PO PRN ×2 (07:12→21:07)
[2022-10-04] MEDS: traMADol 50 MG TABLET PO PRN (07:13)
[2022-10-04 07:25] LABS: Prealbumin 11.2 mg/dL (20.0-40.0)
[2022-10-04] MEDS: BRIMONIDINE OPHTH DROPS 1 GTT BOTTLE 5ML OU SCH ×2 (08:02→21:06)
[2022-10-04] MEDS: DORZOLAMIDE TIMOLOL OP SCH ×2 (08:03→21:08)
[2022-10-04 08:38] LABS: ALT/SGPT 31 U/L (<40); AST/SGOT 33 U/L (<32); Albumin 3.1 gm/dL (3.2-5.2); Alkaline Phosphatase 35 U/L (39-117); Bilirubin,Total 0.2 mg/dL (0.1-1.0); Blood Urea Nitrogen 18 mg/dL (8-23); Calcium 8.6 mg/dL (8.6-10.4); Carbon Dioxide 28 mmol/L (22-30); Chloride 98 mmol/L (96-108); Globulin 3.1 gm/dL (2.2-3.7); Glomerular Filtration Rate 64; Glucose 103 mg/dL (70-105)
[2022-10-04] MEDS ORDERED: LOSARTAN/HCTZ 100/25 TABLET PO SCH (09:00)
[2022-10-04] MEDS ORDERED: Vibegron 75 mg tablet PO SCH (09:00)
[2022-10-04] MEDS ORDERED: LEVOCETIRIZINE 5 MG PO SCH (09:00)
[2022-10-04] MEDS ORDERED: CYANOCOBALAMIN 1,000 MCG/ML VIAL IM SCH (09:00)
[2022-10-04] MEDS ORDERED: Fluticasone-Umeclidin-Vilanter [Trelegy Ellipta] INH SCH (09:00)
[2022-10-04] MEDS: DOCUSATE SODIUM 100 MG CAPSULE PO SCH ×2 (09:51→21:08)
[2022-10-04] MEDS: METHOCARBAMOL 750 MG TABLET PO SCH ×2 (09:52→21:07)
[2022-10-04] MEDS: ATORVASTATIN 20 MG TABLET PO SCH (09:52)
[2022-10-04] MEDS: FOLIC ACID 1 MG TABLET PO SCH (09:53)
[2022-10-04] MEDS: OXYBUTYNIN CHLORIDE 5 MG TAB.XL.24H PO SCH (09:53)
[2022-10-04] MEDS: GABAPENTIN 100 MG CAPSULE PO SCH ×4 (09:53→21:07)
[2022-10-04] MEDS: CETIRIZINE 10 MG TABLET PO SCH (09:53)
[2022-10-04] MEDS: HYDROCHLOROTHIAZIDE 25 MG TABLET PO SCH (09:54)
[2022-10-04] MEDS: MAGNESIUM OXIDE 400 MG TABLET PO SCH ×2 (09:54→21:07)
[2022-10-04] MEDS: LOSARTAN 50 MG TABLET PO SCH (09:54)
[2022-10-04] MEDS: FENOFIBRATE 43 MG CAPSULE PO SCH (09:55)
[2022-10-04] MEDS: [UNRECOGNIZED DRUG - OTHER] INH SCH ×2 (09:56→21:07)
[2022-10-04] MEDS: LATANOPROST OPHTH DROPS 2.5ML BOTTLE OU SCH (09:56)
[2022-10-04] MEDS: OXANDROLONE 10 MG TABLET PO SCH (09:57)
[2022-10-04] MEDS: morphine 4 MG/ML VIAL IV PRN ×2 (10:35→16:19)
--- NOTE | 2022-10-04 11:18 | Internal Med Progress Note ---
SUBJECTIVE Subjective Patient information: Note initiated : 10/04/22 at 11:16 am Service Date, if different from initiated Date: [] Patient: Lucero Magallanes 72 y/o F admitted on 10/02/22 for referred for surgery. Chief Complaint: [] Interval history: Ms. Magallanes is a 72 year old F history of prediabetes, essential hypertensions, dyslipidemia, COPD, hypothyroidism, chronic kidney disease stage III, presenting with at least a month history of the right worse than left lower leg swelling and pain. She was in Dr. Cahpa office earlier today and she was being referred to come to the hospital for surgery including incision and drainage. She is coming of 10 out of 10 pain of her right lower leg. She denies any fever chills or diaphoresis. There was a recent wound culture growing Staph aureus as well as Pseudomonas aeruginosa. Vital signs currently significant for tachycardia heart rate in the low 1 teens. 10/03: s/p repeat wound debridement by Dr. Cash earlier this morning. Cultures no growth to date. Patient is complaining of severe right lower leg pain. Denies fever, chills, or sweating. Continue meropenem while monitoring for culture results. Will start mist treatment tomorrow. Rest of the surgical management as per Dr. Negrete. Continue narcotics as needed for pain control. Physical therapy evaluation and treatment for placement pending. 10/04: Afebrile overnight. Cultures no growth to date. Patient is complaining of moderate right lower leg pain. Denies fever, chills, or sweating. Continue meropenem while monitoring for culture results. Will start mist treatment today. Rest of the surgical management as per Dr. Negrete. Continue narcotics as needed for pain control. Physical therapy evaluation and treatment for placement pending. Constitutional Vitals: Vital Signs Temp Pulse Resp BP Pulse Ox O2 Del Method O2 Flow Rate 36.8 C 61 16 122/53 95 Room Air 2 10/04/22 07:23 10/04/22 07:23 10/04/22 07:23 10/04/22 07:23 10/04/22 07:23 10/04/22 07:23 10/03/22 13:20 Period Temp Pulse Resp BP Sys/Hernandez Pulse Ox O2 Del Method O2 Flow Rate Last 24 Hr 35.8 C-36.8 C 54-92 16-20 110-164/53-84 90-99 Nasal Cannula- Room Air, CPAP 2-2 Intake and Output 10/03/22 10/04/22 10/04/22 19:59 03:59 11:59 Intake Total 740 1350 290 Output Total 300 280 Balance 440 1350 10 Weight 110.903 kg 112.763 kg Intake & Output: Intake & Output 10/03/22 10/04/22 10/04/22 19:59 03:59 11:59 Intake Total 740 1350 290 Output Total 300 280 Balance 440 1350 10 Weight 110.903 kg 112.763 kg Intake: IV 50 1050 50 Sodium Chloride 0.9% 1,000 ml @ 1000 75 mls/hr IV .[id number] CJ Rx#: [id number] Merrem 1 gm In Sodium Chloride 50 50 50 0.9% 50 ml @ 100 mls/hr IV Q8H CJ Rx#:[id number] Oral 690 300 240 Output: Void Amount 300 280 Other: Meal Dinner Breakfast Percent of Meal Consumed 75% 50% Feeding Ability Independent Independent Urine Appearance Clear Clear Urine Color Yellow Dark Yellow Urine Odor Normal Head Head exam: Present atraumatic and normal inspection Eye Eye exam: Present normal appearance ENT ENT exam: Present mucous membranes moist, normal exam and normal external ear exam Neck Neck exam: Present normal inspection Respiratory Respiratory exam: Present normal respiratory exam Cardiovascular Cardiovascular exam: Present normal rate and rhythm GI/Abdominal GI/Abdominal exam: Present normal bowel sounds Extremities Exam Extremities exam: Present full ROM; Absent normal inspection Additional comments: Erythematic rash right lower leg Back Exam Back exam: Present normal inspection Neurological Exam Neurological exam: Present alert and oriented X3 Skin Skin exam: Present erythema and warm; Absent intact Additional comments: Erythematic rash right lower leg OBJ DATA Labs 10/04/22 05:11 10/04/22 05:11 Labs: Abnormal Lab Results 10/04/22 10/04/22 10/04/22 05:11 05:11 05:10 RBC 3.50 L Hgb MCV Immature Gran % (Auto) 0.9 H Traill % (Auto) Traill # (Auto) Immature Gran # 0.07 H ESR Calcium AST 33 H Alkaline Phosphatase 35 L Total Protein Albumin 3.1 L Prealbumin 11.2 L Procalcitonin 02/10/03/22 10/02/22 05:18 05:18 22:54 RBC 3.48 L Hgb 11.0 L MCV 101.1 H Immature Gran % (Auto) Traill % (Auto) 14.3 H Traill # (Auto) 1.06 H Immature Gran # ESR Calcium 8.4 L AST 44 H Alkaline Phosphatase 36 L Total Protein 5.8 L Albumin 3.1 L Prealbumin Procalcitonin 0.14 H 10/02/22 10/02/22 10/02/22 22:54 20:47 20:46 RBC Hgb MCV 100.5 H Immature Gran % (Auto) 0.7 H 0.6 H Traill % (Auto) Traill # (Auto) 1.17 H 1.27 H Immature Gran # 0.07 H 0.06 H ESR 40 H Calcium AST Alkaline Phosphatase Total Protein Albumin Prealbumin Procalcitonin 0.14 H Meds: Medications Acetaminophen (Acetaminophen 325 Mg Tablet) 650 mg PO Q6HP PRN; Protocol PRN Reason: Per Pain Protocol/Fever > 101 Last Admin: 10/03/22 07:21 Dose: 650 mg Hydrocodone Bitart/Acetaminophen (Hydrocodone/Apap 7.5/325mg Tablet) 1 tab PO TIDP PRN PRN Reason: Pain Last Admin: 10/04/22 03:04 Dose: 1 tab Albuterol Sulfate (Albuterol Sulfate 60 Puff Inhaler) 2 puff INH Q4HP PRN PRN Reason: bronchospasm Albuterol/Ipratropium (Ipratropium/Albuterol 3 Ml Ampul.Neb) 3 ml NEB Q4HRT PRN PRN Reason: Wheezing Atorvastatin Calcium (Atorvastatin 20 Mg Tablet) 20 mg PO QDAY [facility] Last Admin: 10/04/22 09:52 Dose: 20 mg Brimonidine Tartrate (Brimonidine Ophth Drops 1 Gtt Bottle 5ml) 1 gtt OU BID [facility] Last Admin: 10/04/22 08:02 Dose: Not Given Cetirizine HCl (Cetirizine 10 Mg Tablet) 10 mg PO DAILY [facility] Last Admin: 10/04/22 09:53 Dose: 10 mg Dextrose (Dextrose 50% 50 Ml Vial) 0 ml IV UD PRN PRN Reason: Per Sliding Scale Diagnostic Test (Pha) (Accu-Chek 1 Each Strip) 1 each FS ACHS [facility] Last Admin: 10/04/22 06:47 Dose: 1 each Docusate Sodium (Docusate Sodium 100 Mg Capsule) 100 mg PO BID [facility] Last Admin: 10/04/22 09:51 Dose: 100 mg Fenofibrate (Fenofibrate 43 Mg Capsule) 86 mg PO QDAY [facility] Last Admin: 10/04/22 09:55 Dose: 86 mg Folic Acid (Folic Acid 1 Mg Tablet) 1 mg PO QDAY [facility] Last Admin: 10/04/22 09:53 Dose: 1 mg Gabapentin (Gabapentin 100 Mg Capsule) 100 mg PO QID [facility] Last Admin: 10/04/22 09:53 Dose: 100 mg Glucose (Dextrose 31 Gm Oral.Susp) 15 gm PO PRN PRN PRN Reason: Hypoglycemia Hydrochlorothiazide (Hydrochlorothiazide 25 Mg Tablet) 25 mg PO DAILY [facility] Last Admin: 10/04/22 09:54 Dose: 25 mg Meropenem 1 gm/ Sodium (Chloride) 50 mls @ 100 mls/hr IV Q8H [facility]; Protocol Last Infusion: 10/04/22 06:03 Dose: Infused Sodium Chloride (Sodium Chloride 0.9%) 1,000 mls @ 75 mls/hr IV .[id number] [facility] Last Admin: 10/04/22 00:57 Dose: 75 mls/hr Insulin Human Lispro (Insulin Lispro 1 Unit/0.01 Ml Unit) 0 unit SQ ACHS [facility]; Protocol Last Admin: 10/04/22 07:07 Dose: Not Given Latanoprost (Latanoprost Ophth Drops 2.5ml Bottle) 1 gtt OU QDAY [facility] Last Admin: 10/04/22 09:56 Dose: Not Given Levothyroxine Sodium (Levothyroxine 50 Mcg Tablet) 50 mcg PO QAMAC [facility] Last Admin: 10/04/22 06:49 Dose: 50 mcg Losartan Potassium (Losartan 50 Mg Tablet) 100 mg PO DAILY [facility] Last Admin: 10/04/22 09:54 Dose: 100 mg Magnesium Oxide (Magnesium Oxide 400 Mg Tablet) 400 mg PO BID [facility] Last Admin: 10/04/22 09:54 Dose: 400 mg Methocarbamol (Methocarbamol 750 Mg Tablet) 750 mg PO BID [facility] Last Admin: 10/04/22 09:52 Dose: 750 mg Morphine Sulfate (Morphine 4 Mg/Ml Vial) 4 mg IV Q4HP PRN; Protocol PRN Reason: Per Pain Protocol Last Admin: 10/04/22 10:35 Dose: 4 mg Naproxen (Naproxen 250 Mg Tablet) 250 mg PO Q12HP PRN PRN Reason: Pain Last Admin: 10/04/22 07:12 Dose: 250 mg Omeprazole (Omeprazole 20 Mg Capsule) 20 mg PO QAMAC [facility] Last Admin: 10/04/22 06:49 Dose: 20 mg Ondansetron HCl (Ondansetron 4 Mg/2 Ml Vial) 4 mg IV Q6HP PRN PRN Reason: Nausea And Vomiting Oxandrolone (Oxandrolone 10 Mg Tablet) 10 mg PO DAILY [facility] Last Admin: 10/04/22 09:57 Dose: 10 mg Oxybutynin Chloride (Oxybutynin Chloride 5 Mg Tab.Xl.24h) 5 mg PO QDAY [facility] Last Admin: 10/04/22 09:53 Dose: 5 mg Dorzolamide-Timolol [Cosopt] 22.3-6.8 Mg /Ml 1 dose OP BID [facility] Last Admin: 10/04/22 08:03 Dose: Not Given Budesonide- Glycopyrolate- Formoterol 160/9/4. 8mcg 2 dose INH Q12 [facility] Last Admin: 10/04/22 09:56 Dose: Not Given Senna (Sennosides 1 Tablet) 2 tab PO HS [facility] Last Admin: 10/03/22 20:12 Dose: 2 tab Sodium Chloride (0.9 % Sodium Chloride 10 Ml Syringe) 10 ml IV Q8 [facility] Last Admin: 10/04/22 05:31 Dose: Not Given Tramadol HCl (Tramadol 50 Mg Tablet) 50 mg PO TIDP PRN PRN Reason: pain Last Admin: 10/04/22 07:13 Dose: 50 mg Trazodone HCl (Trazodone Hcl 50 Mg Tablet) 25 mg PO HSP PRN PRN Reason: Insomnia A/P Assessment and plan (1) Cellulitis: Status: Chronic (2) COPD (chronic obstructive pulmonary disease): Status: Chronic (3) Hyperlipidemia: Status: Chronic Qualifiers: Hyperlipidemia type: unspecified Qualified Code(s): E78.5 - Hyperlipide geno, unspecified (4) Hypertension: Status: Chronic Qualifiers: Hypertension type: unspecified Qualified Code(s): I10 - Essential (primary) hypertension (5) Prediabetes: Status: Chronic (6) Hypothyroidism: Status: Chronic Qualifiers: Hypothyroidism type: unspecified Qualified Code(s): E03.9 - Hypothyroidism, unspecified (7) Chronic kidney disease (CKD) stage G3a/A1, moderately decreased glomerular filtration rate (GFR) between 45-59 mL/min/1.73 square meter and albuminuria creatinine ratio less than 30 mg/g: Status: Acute Narrative A/P Narrative: Assessment and Plans: 1. Right leg cellulitis: Inpatient med surg s/p repeat wound debridement by Dr. Cash. Will start mist treatment tomorrow. Rest of the surgical management as per Dr. Negrete cbc w/ auto diff daily Blood culture, no growth to date Intraoperative culture pending Lactic acid 1.4 Procalcitonin level 0.14 Continue meropenem while monitoring for culture results Physical therapy evaluation and treatment 2. Prediabetes: HgA1c 6.0 Hold oral hypoglycemics Insulin Lispro SSI AC HS Accu Check AC HS Hypoglycemia protocol Resume diabetic diet 3. Essential hypertension: Okay to resume oral antihypertensives 4. Hyperlipidemia: Resume statin therapy 5. COPD, stable: Resume bronchodilators 6. Hypothyroidism: Resume thyroid replacement therapy 7. Chronic kidney disease III: Avoid nephrotoxic agents Saline lock CMP in the morning to trend kidney functions GI ppx: not currently indicated DVT ppx: Heparin Code status: Full Prognosis: guarded Disposition: inpatient med surg; PT Plan of Treatment: Plan: Surgical debridement and pulse lavage irrigation. Spoke with patient again about plan of care. She understands and agrees to proceed . Time Spent With Patient Time: Total time spent is greater than 50% in coordination of care (as documented) at patient's floor/unit and/or counseling patient: Subsequent: Total time with patient: 35 - 49 minutes
[2022-10-04] MEDS: ACETAMINOPHEN 325 MG TABLET PO PRN (12:59)
--- NOTE | 2022-10-04 13:10 | General Surgery Progress Note ---
SUBJECTIVE Subjective Patient information: Note initiated : 10/04/22 at 1:01 pm Service Date, if different from initiated Date: [] Patient: Lucero Magallanes 72 y/o F admitted on 10/02/22 for referred for surgery. Chief Complaint: [] Additional PMFSH (Level 3 Only): Patient seen on rounds along with Inez Cummings RN. Starting to feel well, but still has pain RIGHT leg. Has NOT smoked since coming to hospital. Constitutional Vitals: Vital Signs Temp Pulse Resp BP Pulse Ox O2 Del Method O2 Flow Rate 98 F 62 18 119/62 95 Room Air 2 10/04/22 11:49 10/04/22 11:49 10/04/22 11:49 10/04/22 11:49 10/04/22 11:49 10/04/22 11:49 10/03/22 13:20 Period Temp Pulse Resp BP Sys/Hernandez Pulse Ox O2 Del Method O2 Flow Rate Last 24 Hr 96.5 F-98.2 F 54-92 16-20 110-149/53-79 90-97 Nasal Cannula- Room Air, CPAP 2 Intake and Output 10/04/22 10/04/22 10/04/22 03:59 11:59 19:59 Intake Total 1350 290 Output Total 280 Balance 1350 10 Weight 248 lb 9.6 oz Intake & Output: Intake & Output 10/04/22 10/04/22 10/04/22 03:59 11:59 19:59 Intake Total 1350 290 Output Total 280 Balance 1350 10 Weight 248 lb 9.6 oz Intake: IV 1050 50 Sodium Chloride 0.9% 1,000 ml @ 1000 75 mls/hr IV .[id number] CJ Rx#: [id number] Merrem 1 gm In Sodium Chloride 50 50 0.9% 50 ml @ 100 mls/hr IV Q8H CJ Rx#:[id number] Oral 300 240 Output: Void Amount 280 Other: Meal Breakfast Percent of Meal Consumed 50% Feeding Ability Independent Urine Appearance Clear Urine Color Dark Yellow Urine Odor Normal Exam: POD # 1. AVSS. Unremarkable KENN. No changes. RIGHT leg wounds were examined. Moderate serous drainage. Tolerating MIST therapy . Labs: Prealbumin is 11. (Hypoproteinemia) Creatinine and Potassium is normal. A/P Narrative A/P Narrative: Assessment: Slow progress with post op pain resolution. HYPOPROTEINEMIA. Needs to ambulate. Plan of Treatment: Plan: Consult ID for antibiotic recommendations. Infectious disease consult. Physical Therapy for ambulation. Started her on Oxandrin 10 mg/day (Hypoproteinemia) Continue daily MIST therapy at this time. Plan discussed with Dr. BRANHAM. Hospitalist Physician. Time Spent With Patient Time: Total time spent is greater than 50% in coordination of care (as documented) at patient's floor/unit and/or counseling patient:
[2022-10-04] MEDS: SENNOSIDES 1 TABLET PO SCH (21:06)
[2022-10-04] MEDS: HEPARIN 5,000 UNIT/ML VIAL SQ SCH (21:07)
[2022-10-05] MEDS: traMADol 50 MG TABLET PO PRN ×2 (01:58→10:31)
[2022-10-05] MEDS: MEROPENEM 1 GM in 0.9 % SODIUM CHLORIDE 50 ML IV SCH ×3 (05:17→20:17)
[2022-10-05] MEDS: 0.9 % SODIUM CHLORIDE 10 ML SYRINGE IV SCH ×3 (05:18→20:35)
[2022-10-05] MEDS: OMEPRAZOLE 20 MG CAPSULE PO SCH (07:29)
[2022-10-05] MEDS: LEVOTHYROXINE 50 MCG TABLET PO SCH (07:30)
[2022-10-05 07:32] LABS: Basophils # (Auto) 0.09 K/mcL (0.00-0.30); Basophils % (Auto) 0.9 % (0.0-2.0); Eosinophils # (Auto) 0.17 K/mcL (0.00-0.70); Eosinophils % (Auto) 1.7 % (0.0-7.0); Hematocrit 35.9 % (34.1-44.9); Hemoglobin 11.5 g/dL (11.2-15.7); Lymphocytes # (Auto) 3.29 K/mcL (1.50-4.80); Mean Cell Volume 99.2 fL (80.0-100.0); Mean Platelet Volume 10.1 fL (8.8-12.5); Monocytes # (Auto) 1.15 K/mcL (0.10-0.90); Monocytes % (Auto) 11.5 % (1.0-12.0); Neutrophils % (Auto) 52.3 % (38.0-78.0); Platelet Count 392 K/mcL (140-440); RBC 3.62 M/mcL (3.59-5.38); Red Cell Distribution Width 12.6 % (11.5-14.5)
[2022-10-05] MEDS: INSULIN LISPRO 1 UNIT/0.01 ML UNIT SQ SCH ×4 (07:44→20:34)
[2022-10-05] MEDS: BRIMONIDINE OPHTH DROPS 1 GTT BOTTLE 5ML OU SCH ×2 (07:45→20:26)
[2022-10-05] MEDS: DORZOLAMIDE TIMOLOL OP SCH ×2 (07:45→20:35)
[2022-10-05] MEDS: LATANOPROST OPHTH DROPS 2.5ML BOTTLE OU SCH (07:46)
[2022-10-05] MEDS: METHOCARBAMOL 750 MG TABLET PO SCH ×2 (08:18→20:16)
[2022-10-05] MEDS: LOSARTAN 50 MG TABLET PO SCH (08:18)
[2022-10-05] MEDS: OXYBUTYNIN CHLORIDE 5 MG TAB.XL.24H PO SCH (08:18)
[2022-10-05] MEDS: GABAPENTIN 100 MG CAPSULE PO SCH ×4 (08:19→20:16)
[2022-10-05] MEDS: DOCUSATE SODIUM 100 MG CAPSULE PO SCH ×2 (08:19→20:16)
[2022-10-05] MEDS: HYDROCHLOROTHIAZIDE 25 MG TABLET PO SCH (08:20)
[2022-10-05] MEDS: FENOFIBRATE 43 MG CAPSULE PO SCH (08:20)
[2022-10-05] MEDS: CETIRIZINE 10 MG TABLET PO SCH (08:20)
[2022-10-05] MEDS: MAGNESIUM OXIDE 400 MG TABLET PO SCH ×2 (08:20→20:16)
[2022-10-05] MEDS: FOLIC ACID 1 MG TABLET PO SCH (08:21)
[2022-10-05] MEDS: HYDROCODONE/APAP 7.5/325MG TABLET PO PRN ×2 (08:21→12:48)
[2022-10-05] MEDS: ATORVASTATIN 20 MG TABLET PO SCH (08:21)
[2022-10-05] MEDS: [UNRECOGNIZED DRUG - OTHER] INH SCH ×2 (08:22→20:34)
[2022-10-05] MEDS: HEPARIN 5,000 UNIT/ML VIAL SQ SCH ×2 (08:22→20:16)
[2022-10-05] MEDS: OXANDROLONE 10 MG TABLET PO SCH (08:22)
[2022-10-05 08:32] LABS: ALT/SGPT 25 U/L (<40); AST/SGOT 22 U/L (<32); Albumin 3.4 gm/dL (3.2-5.2); Albumin/Globulin Ratio 1.2 (1.0-2.3); Alkaline Phosphatase 32 U/L (39-117); Bilirubin,Total 0.2 mg/dL (0.1-1.0); Blood Urea Nitrogen 25 mg/dL (8-23); Calcium 8.9 mg/dL (8.6-10.4); Carbon Dioxide 28 mmol/L (22-30); Chloride 98 mmol/L (96-108); Globulin 2.9 gm/dL (2.2-3.7); Glomerular Filtration Rate 50; Glucose 92 mg/dL (70-105)
[2022-10-05] MEDS: NAPROXEN 250 MG TABLET PO PRN (10:30)
[2022-10-05] MEDS: ACETAMINOPHEN 325 MG TABLET PO PRN ×2 (10:31→16:29)
[2022-10-05] MEDS: morphine 4 MG/ML VIAL IV PRN ×2 (10:31→16:30)
--- NOTE | 2022-10-05 11:13 | Internal Med Progress Note ---
SUBJECTIVE Subjective Patient information: Note initiated : 10/05/22 at 11:07 am Service Date, if different from initiated Date: [] Patient: Lucero Magallanes a 72 y/o F admitted on 10/02/22 for referred for surgery. Chief Complaint: [] Interval history: Ms. Magallanes is a 72 year old F history of prediabetes, essential hypertensions, dyslipidemia, COPD, hypothyroidism, chronic kidney disease stage III, presenting with at least a month history of the right worse than left lower leg swelling and pain. She was in Dr. Chapa office earlier today and she was being referred to come to the hospital for surgery including incision and drainage. She is coming of 10 out of 10 pain of her right lower leg. She denies any fever chills or diaphoresis. There was a recent wound culture growing Staph aureus as well as Pseudomonas aeruginosa. Vital signs currently significant for tachycardia heart rate in the low 1 teens. 10/03: s/p repeat wound debridement by Dr. Cash earlier this morning. Cultures no growth to date. Patient is complaining of severe right lower leg pain. Denies fever, chills, or sweating. Continue meropenem while monitoring for culture results. Will start mist treatment tomorrow. Rest of the surgical management as per Dr. Negrete. Continue narcotics as needed for pain control. Physical therapy evaluation and treatment for placement pending. 10/04: Afebrile overnight. Cultures no growth to date. Patient is complaining of moderate right lower leg pain. Denies fever, chills, or sweating. Continue meropenem while monitoring for culture results. Will start mist treatment today. Rest of the surgical management as per Dr. Cash. Continue narcotics as needed for pain control. Physical therapy evaluation and treatment for placement pending. 10/05: Afebrile overnight. Cultures no growth to date. Patient is complaining of moderate right lower leg pain. Denies fever, chills, or sweating. Continue meropenem while monitoring for culture results. Pending tele-ID consultation. Continue daily mist therapy. Rest of the surgical management as per Dr. Cash. Continue narcotics as needed for pain control. Physical therapy evaluation and treatment for placement pending. Constitutional Vitals: Vital Signs Temp Pulse Resp BP Pulse Ox O2 Del Method O2 Flow Rate 36.6 C 46 L 16 125/55 96 BiPAP 2 10/05/22 07:19 10/05/22 07:19 10/05/22 07:19 10/05/22 07:19 10/05/22 07:19 10/05/22 07:19 10/03/22 13:20 Period Temp Pulse Resp BP Sys/Hernandez Pulse Ox O2 Del Method O2 Flow Rate Last 24 Hr 36.6 C-37.1 C 46-71 16-18 108-128/49-73 94-99 BiPAP-Room Air Intake and Output 10/04/22 10/05/22 10/05/22 19:59 03:59 11:59 Intake Total 2570 550 570 Output Total 376 400 2415 Balance 1969 Weight 112.899 kg Intake & Output: Intake & Output 10/04/22 10/05/22 10/05/22 19:59 03:59 11:59 Intake Total 2570 550 570 Output Total 896 611 2828 Balance 1969 Weight 112.899 kg Intake: IV 1050 50 50 Sodium Chloride 0.9% 1,000 ml @ 1000 75 mls/hr IV .[id number] [facility] Rx#: [id number] Merrem 1 gm In Sodium Chloride 50 50 50 0.9% 50 ml @ 100 mls/hr IV Q8H [facility] Rx#:[id number] Oral 1520 500 520 Output: Void Amount 506 356 5975 Other: Meal Dinner Breakfast Percent of Meal Consumed 100% 90% Feeding Ability Independent Urine Appearance Clear Clear Clear Urine Color Yellow Yellow Yellow Urine Odor Normal Head Head exam: Present atraumatic and normal inspection Eye Eye exam: Present normal appearance ENT ENT exam: Present mucous membranes moist, normal exam and normal external ear exam Neck Neck exam: Present normal inspection Respiratory Respiratory exam: Present normal respiratory exam Cardiovascular Cardiovascular exam: Present normal rate and rhythm GI/Abdominal GI/Abdominal exam: Present normal bowel sounds Extremities Exam Extremities exam: Present full ROM and tenderness; Absent normal inspection Additional comments: Right lower leg covered by wound dressing. Back Exam Back exam: Present normal inspection Neurological Exam Neurological exam: Present alert and oriented X3 Skin Skin exam: Present warm; Absent intact Additional comments: Right lower leg covered by wound dressing. OBJ DATA Labs 10/05/22 05:24 10/05/22 05:23 Labs: Abnormal Lab Results 10/05/22 10/05/22 10/04/22 05:24 05:23 05:11 RBC Hgb MCV Immature Gran % (Auto) 0.6 H [place] % (Auto) [place] # (Auto) 1.15 H Immature Gran # 0.06 H ESR BUN 25 H Calcium AST 33 H Alkaline Phosphatase 32 L 35 L Total Protein Albumin 3.1 L Prealbumin Procalcitonin 10/04/22 10/04/22 10/03/22 05:11 05:10 05:18 RBC 3.50 L Hgb MCV Immature Gran % (Auto) 0.9 H [place] % (Auto) [place] # (Auto) Immature Gran # 0.07 H ESR BUN Calcium 8.4 L AST 44 H Alkaline Phosphatase 36 L Total Protein 5.8 L Albumin 3.1 L Prealbumin 11.2 L Procalcitonin 10/03/22 10/02/22 10/02/22 05:18 22:54 22:54 RBC 3.48 L Hgb 11.0 L MCV 101.1 H 100.5 H Immature Gran % (Auto) 0.7 H [place] % (Auto) 14.3 H [place] # (Auto) 1.06 H 1.17 H Immature Gran # 0.07 H ESR 40 H BUN Calcium AST Alkaline Phosphatase Total Protein Albumin Prealbumin Procalcitonin 0.14 H 10/02/22 10/02/22 20:47 20:46 RBC Hgb MCV Immature Gran % (Auto) 0.6 H [place] % (Auto) [place] # (Auto) 1.27 H Immature Gran # 0.06 H ESR BUN Calcium AST Alkaline Phosphatase Total Protein Albumin Prealbumin Procalcitonin 0.14 H Meds: Medications Acetaminophen (Acetaminophen 325 Mg Tablet) 650 mg PO Q6HP PRN; Protocol PRN Reason: Per Pain Protocol/Fever > 101 Last Admin: 10/05/22 10:31 Dose: 650 mg Hydrocodone Bitart/Acetaminophen (Hydrocodone/Apap 7.5/325mg Tablet) 1 tab PO TIDP PRN PRN Reason: Pain Last Admin: 10/05/22 08:21 Dose: 1 tab Albuterol Sulfate (Albuterol Sulfate 60 Puff Inhaler) 2 puff INH Q4HP PRN PRN Reason: bronchospasm Albuterol/Ipratropium (Ipratropium/Albuterol 3 Ml Ampul.Neb) 3 ml NEB Q4HRT PRN PRN Reason: Wheezing Atorvastatin Calcium (Atorvastatin 20 Mg Tablet) 20 mg PO QDAY [facility] Last Admin: 10/05/22 08:21 Dose: 20 mg Brimonidine Tartrate (Brimonidine Ophth Drops 1 Gtt Bottle 5ml) 1 gtt OU BID [facility] Last Admin: 10/05/22 07:45 Dose: Not Given Cetirizine HCl (Cetirizine 10 Mg Tablet) 10 mg PO DAILY [facility] Last Admin: 10/05/22 08:20 Dose: 10 mg Dextrose (Dextrose 50% 50 Ml Vial) 0 ml IV UD PRN PRN Reason: Per Sliding Scale Diagnostic Test (Pha) (Accu-Chek 1 Each Strip) 1 each FS ACHS [facility] Last Admin: 10/05/22 07:44 Dose: 1 each Docusate Sodium (Docusate Sodium 100 Mg Capsule) 100 mg PO BID [facility] Last Admin: 10/05/22 08:19 Dose: 100 mg Fenofibrate (Fenofibrate 43 Mg Capsule) 86 mg PO QDAY [facility] Last Admin: 10/05/22 08:20 Dose: 86 mg Folic Acid (Folic Acid 1 Mg Tablet) 1 mg PO QDAY [facility] Last Admin: 10/05/22 08:21 Dose: 1 mg Gabapentin (Gabapentin 100 Mg Capsule) 100 mg PO QID [facility] Last Admin: 10/05/22 08:19 Dose: 100 mg Glucose (Dextrose 31 Gm Oral.Susp) 15 gm PO PRN PRN PRN Reason: Hypoglycemia Heparin Sodium (Porcine) (Heparin 5,000 Unit/Ml Vial) 5,000 unit SQ Q12 [facility] Last Admin: 10/05/22 08:22 Dose: 5,000 unit Hydrochlorothiazide (Hydrochlorothiazide 25 Mg Tablet) 25 mg PO DAILY [facility] Last Admin: 10/05/22 08:20 Dose: 25 mg Meropenem 1 gm/ Sodium (Chloride) 50 mls @ 100 mls/hr IV Q8H [facility]; Protocol Last Infusion: 10/05/22 05:45 Dose: Infused Insulin Human Lispro (Insulin Lispro 1 Unit/0.01 Ml Unit) 0 unit SQ [facility]; Protocol Last Admin: 10/05/22 07:44 Dose: Not Given Latanoprost (Latanoprost Ophth Drops 2.5ml Bottle) 1 gtt OU QDAY [facility] Last Admin: 10/05/22 07:46 Dose: Not Given Levothyroxine Sodium (Levothyroxine 50 Mcg Tablet) 50 mcg PO QAMAC [facility] Last Admin: 10/05/22 07:30 Dose: 50 mcg Losartan Potassium (Losartan 50 Mg Tablet) 100 mg PO DAILY [facility] Last Admin: 10/05/22 08:18 Dose: 100 mg Magnesium Oxide (Magnesium Oxide 400 Mg Tablet) 400 mg PO BID [facility] Last Admin: 10/05/22 08:20 Dose: 400 mg Methocarbamol (Methocarbamol 750 Mg Tablet) 750 mg PO BID [facility] Last Admin: 10/05/22 08:18 Dose: 750 mg Morphine Sulfate (Morphine 4 Mg/Ml Vial) 4 mg IV Q4HP PRN; Protocol PRN Reason: Per Pain Protocol Last Admin: 10/05/22 10:31 Dose: 4 mg Naproxen (Naproxen 250 Mg Tablet) 250 mg PO Q12HP PRN PRN Reason: Pain Last Admin: 10/05/22 10:30 Dose: 250 mg [facility]eprazole ([facility] 20 Mg [facility]apsule) [facility] Admin: 10/05/22 07:29 Dose: 20 mg Ondansetron HCl (Ondansetron 4 Mg/2 Ml Vial) 4 mg IV Q6HP PRN PRN Reason: Nausea And Vomiting Oxandrolone (Oxandrolone 10 Mg Tablet) 10 mg PO DAILY [facility] Last Admin: 10/05/22 08:22 Dose: 10 mg Oxybutynin Chloride (Oxybutynin Chloride 5 Mg Tab.Xl.24h) 5 mg PO QDAY [facility] Last Admin: 10/05/22 08:18 Dose: 5 mg Dorzolamide-Timolol [Cosopt] 22.3-6.8 Mg /Ml 1 dose OP BID [facility] Last Admin: 10/05/22 07:45 Dose: Not Given Budesonide- Glycopyrolate- Formoterol 160/9/4. 8mcg 2 dose INH Q12 [facility] Last Admin: 10/05/22 08:22 Dose: 2 dose Senna (Sennosides 1 Tablet) 2 tab PO HS [facility] Last Admin: 10/04/22 21:06 Dose: 2 tab Sodium Chloride (0.9 % Sodium Chloride 10 Ml Syringe) 10 ml IV Q8 [facility] Last Admin: 10/05/22 05:18 Dose: 10 ml Tramadol HCl (Tramadol 50 Mg Tablet) 50 mg PO TIDP PRN PRN Reason: pain Last Admin: 10/05/22 10:31 Dose: 50 mg Trazodone HCl (Trazodone Hcl 50 Mg Tablet) 25 mg PO HSP PRN PRN Reason: Insomnia A/P Assessment and plan (1) Cellulitis: Status: Chronic (2) COPD (chronic obstructive pulmonary disease): Status: Chronic (3) Hyperlipidemia: Status: Chronic Qualifiers: Hyperlipidemia type: unspecified Qualified Code(s): E78.5 - Hyperlipidemia, unspecified (4) Hypertension: Status: Chronic Qualifiers: Hypertension type: unspecified Qualified Code(s): I10 - Essential (primary) hypertension (5) Prediabetes: Status: Chronic (6) Hypothyroidism: Status: Chronic Qualifiers: Hypothyroidism type: unspecified Qualified Code(s): E03.9 - Hypothyroidism, unspecified (7) Chronic kidney disease (CKD) stage G3a/A1, moderately decreased glomerular filtration rate (GFR) between 45-59 mL/min/1.73 square meter and albuminuria creatinine ratio less than 30 mg/g: Status: Acute Narrative A/P Narrative: Assessment and Plans: 1. Right leg cellulitis: Inpatient med surg s/p repeat wound debridement by Dr. Cash. Daily mist therapy. Rest of the surgical management as per Dr. Negrete Tele-ID consultation, recs. appreciated cbc w/ auto diff daily Blood culture, no growth to date Intraoperative culture pending Lactic acid 1.4 Procalcitonin level 0.14 Continue meropenem while monitoring for culture results Physical therapy evaluation and treatment 2. Prediabetes: HgA1c 6.0 Hold oral hypoglycemics Insulin Lispro SSI AC HS Accu Check AC HS Hypoglycemia protocol Resume diabetic diet 3. Essential hypertension: Okay to resume oral antihypertensives 4. Hyperlipidemia: Resume statin therapy 5. COPD, stable: Resume bronchodilators 6. Hypothyroidism: Resume thyroid replacement therapy 7. Chronic kidney disease III: Avoid nephrotoxic agents Saline lock CMP in the morning to trend kidney functions GI ppx: not currently indicated DVT ppx: Heparin Code status: Full Prognosis: Stable Disposition: inpatient med surg; PT Time Spent With Patient Time: Total time spent is greater than 50% in coordination of care (as documented) at patient's floor/unit and/or counseling patient: Subsequent: Total time with patient: 35 - 49 minutes
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
[2022-10-05] MEDS ORDERED: POLYETHYLENE GLYCOL 3350 17 GM PACKET PO PRN (17:57)
[2022-10-05] MEDS ORDERED: LACTULOSE 20 GM/30 ML ORAL.SOL PO PRN (17:57)
[2022-10-05] MEDS ORDERED: MAGNESIUM HYDROXIDE 30 ML ORAL.SUSP PO PRN (17:57)
[2022-10-05] MEDS: SENNOSIDES 1 TABLET PO SCH (20:16)
[2022-10-06] MEDS: HYDROCODONE/APAP 7.5/325MG TABLET PO PRN ×2 (05:44→09:10)
[2022-10-06] MEDS: MEROPENEM 1 GM in 0.9 % SODIUM CHLORIDE 50 ML IV SCH ×3 (05:46→22:33)
[2022-10-06] MEDS: 0.9 % SODIUM CHLORIDE 10 ML SYRINGE IV SCH ×3 (05:47→22:30)
[2022-10-06] MEDS: INSULIN LISPRO 1 UNIT/0.01 ML UNIT SQ SCH ×4 (07:49→20:59)
[2022-10-06] MEDS: OMEPRAZOLE 20 MG CAPSULE PO SCH (07:56)
[2022-10-06] MEDS: LEVOTHYROXINE 50 MCG TABLET PO SCH (07:57)
[2022-10-06 08:23] LABS: Basophils # (Auto) 0.08 K/mcL (0.00-0.30); Basophils % (Auto) 0.8 % (0.0-2.0); Eosinophils # (Auto) 0.54 K/mcL (0.00-0.70); Eosinophils % (Auto) 5.4 % (0.0-7.0); Hematocrit 35.2 % (34.1-44.9); Lymphocytes # (Auto) 2.11 K/mcL (1.50-4.80); Lymphocytes % (Auto) 21.2 % (15.5-49.0); Mean Cell Volume 100.3 fL (80.0-100.0); Mean Corpuscular HGB Conc 31.3 g/dL (31.0-36.0); Mean Platelet Volume 10.2 fL (8.8-12.5); Monocytes # (Auto) 1.19 K/mcL (0.10-0.90); Monocytes % (Auto) 11.9 % (1.0-12.0); Neutrophils % (Auto) 60.1 % (38.0-78.0); Platelet Count 361 K/mcL (140-440); RBC 3.51 M/mcL (3.59-5.38); Red Cell Distribution Width 12.9 % (11.5-14.5)
[2022-10-06] MEDS: BRIMONIDINE OPHTH DROPS 1 GTT BOTTLE 5ML OU SCH ×2 (08:28→21:11)
[2022-10-06] MEDS: DORZOLAMIDE TIMOLOL OP SCH ×2 (08:30→21:10)
[2022-10-06] MEDS: LATANOPROST OPHTH DROPS 2.5ML BOTTLE OU SCH (08:31)
[2022-10-06 08:44] LABS: ALT/SGPT 19 U/L (<40); AST/SGOT 18 U/L (<32); Albumin 3.1 gm/dL (3.2-5.2); Albumin/Globulin Ratio 1.2 (1.0-2.3); Alkaline Phosphatase 30 U/L (39-117); Bilirubin,Total 0.2 mg/dL (0.1-1.0); Blood Urea Nitrogen 27 mg/dL (8-23); Calcium 8.8 mg/dL (8.6-10.4); Carbon Dioxide 31 mmol/L (22-30); Chloride 99 mmol/L (96-108); Globulin 2.6 gm/dL (2.2-3.7); Glomerular Filtration Rate 45; Glucose 89 mg/dL (70-105)
[2022-10-06] MEDS: ATORVASTATIN 20 MG TABLET PO SCH (08:46)
[2022-10-06] MEDS: DOCUSATE SODIUM 100 MG CAPSULE PO SCH ×2 (08:46→21:09)
[2022-10-06] MEDS: HYDROCHLOROTHIAZIDE 25 MG TABLET PO SCH (08:46)
[2022-10-06] MEDS: METHOCARBAMOL 750 MG TABLET PO SCH ×2 (08:46→21:09)
[2022-10-06] MEDS: LOSARTAN 50 MG TABLET PO SCH (08:47)
[2022-10-06] MEDS: FOLIC ACID 1 MG TABLET PO SCH (08:47)
[2022-10-06] MEDS: MAGNESIUM OXIDE 400 MG TABLET PO SCH ×2 (08:47→21:09)
[2022-10-06] MEDS: OXYBUTYNIN CHLORIDE 5 MG TAB.XL.24H PO SCH (08:47)
[2022-10-06] MEDS: FENOFIBRATE 43 MG CAPSULE PO SCH (08:47)
[2022-10-06] MEDS: GABAPENTIN 100 MG CAPSULE PO SCH ×4 (08:47→21:09)
[2022-10-06] MEDS: HEPARIN 5,000 UNIT/ML VIAL SQ SCH ×2 (08:48→21:09)
[2022-10-06] MEDS: CETIRIZINE 10 MG TABLET PO SCH (09:10)
[2022-10-06] MEDS: OXANDROLONE 10 MG TABLET PO SCH (09:10)
[2022-10-06] MEDS: [UNRECOGNIZED DRUG - OTHER] INH SCH ×2 (09:12→21:10)
--- NOTE | 2022-10-06 12:02 | General Surgery Progress Note ---
SUBJECTIVE Subjective Patient information: Note initiated : 10/06/22 at 11:58 am Service Date, if different from initiated Date: [] Patient: Lucero Magallanes 72 y/o F admitted on 10/02/22 for referred for surgery. Chief Complaint: [] Additional PMFSH (Level 3 Only): Patient seen on rounds. Making slow progress. Ambulating better. Pain is less 3-4/10 Responding to physical therapy and MIST. Constitutional Vitals: Vital Signs Temp Pulse Resp BP Pulse Ox O2 Del Method O2 Flow Rate 98.3 F 55 L 16 131/78 96 Room Air 2 10/06/22 07:51 10/06/22 07:51 10/06/22 07:51 10/06/22 07:51 10/06/22 07:51 10/06/22 07:51 10/06/22 01:06 Period Temp Pulse Resp BP Sys/Hernandez Pulse Ox O2 Del Method O2 Flow Rate Last 24 Hr 96.3 F-98.4 F 49-55 12-18 105-132/44-78 93-97 CPAP-Room Air 2-2 Intake and Output 10/05/22 10/06/22 10/06/22 19:59 03:59 11:59 Intake Total 792 07 2669 Output Total 500 Balance 530 50 750 Weight 248 lb Intake & Output: Intake & Output 10/05/22 10/06/22 10/06/22 19:59 03:59 11:59 Intake Total 232 82 2580 Output Total 500 Balance 530 50 750 Weight 248 lb Intake: IV 50 50 50 Merrem 1 gm In Sodium Chloride 50 50 50 0.9% 50 ml @ 100 mls/hr IV Q8H [facility] Rx#:[id number] Oral 480 1200 Output: Urine Catheter Amount 500 Other: Meal Dinner Breakfast Percent of Meal Consumed 100% 100% Feeding Ability Independent Independent Urine Color Dark Yellow Yellow Dark Yellow Urine Odor Normal Normal Stool Size Moderate Stool Color Brown Stool Consistency Soft Formed # Bowel Movements 1 Exam: AVSS.No changes KENN. Playing solitaire on hr lap top. RIGHT foot PWD. No edema. Ankle ROM are normal Toes PWD. Dressings CDI. A/P Narrative A/P Narrative: Assessment: Progressing well. Plan of Treatment: Plan: Doing well. Continue present treatment. Anticipate d/c after weekend/ Would prefer her to go to a facility where [facility] sand wound care services are available. Time Spent With Patient Time: Total time spent is greater than 50% in coordination of care (as documented) at patient's floor/unit and/or counseling patient:
--- NOTE | 2022-10-06 12:29 | Internal Med Progress Note ---
SUBJECTIVE Subjective Patient information: Note initiated : 10/06/22 at 12:27 pm Service Date, if different from initiated Date: [] Patient: Lucero Magallanes a 72 y/o F admitted on 10/02/22 for referred for surgery. Chief Complaint: [] Interval history: Ms. Magallanes is a 72 year old F history of prediabetes, essential hypertensions, dyslipidemia, COPD, hypothyroidism, chronic kidney disease stage III, presenting with at least a month history of the right worse than left lower leg swelling and pain. She was in Dr. Chapa office earlier today and she was being referred to come to the hospital for surgery including incision and drainage. She is coming of 10 out of 10 pain of her right lower leg. She denies any fever chills or diaphoresis. There was a recent wound culture growing Staph aureus as well as Pseudomonas aeruginosa. Vital signs currently significant for tachycardia heart rate in the low 1 teens. 10/03: s/p repeat wound debridement by Dr. Cash earlier this morning. Cultures no growth to date. Patient is complaining of severe right lower leg pain. Denies fever, chills, or sweating. Continue meropenem while monitoring for culture results. Will start mist treatment tomorrow. Rest of the surgical management as per Dr. Negrete. Continue narcotics as needed for pain control. Physical therapy evaluation and treatment for placement pending. 10/04: Afebrile overnight. Cultures no growth to date. Patient is complaining of moderate right lower leg pain. Denies fever, chills, or sweating. Continue meropenem while monitoring for culture results. Will start mist treatment today. Rest of the surgical management as per Dr. Cash. Continue narcotics as needed for pain control. Physical therapy evaluation and treatment for placement pending. 10/05: Afebrile overnight. Cultures no growth to date. Patient is complaining of moderate right lower leg pain. Denies fever, chills, or sweating. Continue meropenem while monitoring for culture results. Pending tele-ID consultation. Continue daily mist therapy. Rest of the surgical management as per Dr. Cash. Continue narcotics as needed for pain control. Physical therapy evaluation and treatment for placement pending. 10/06: Afebrile overnight. Cultures no growth to date. Patient is complaining of moderate right lower leg pain. Denies fever, chills, or sweating. Physical therapist recs. SNF placement. Continue meropenem while monitoring for culture results. Pending tele-ID consultation. Continue daily mist therapy. Rest of the surgical management as per Dr. Cash. Continue narcotics as needed for pain control. Physical therapy evaluation and treatment for placement pending. Constitutional Vitals: Vital Signs Temp Pulse Resp BP Pulse Ox O2 Del Method O2 Flow Rate 36.8 C 55 L 16 131/78 96 Room Air 2 10/06/22 07:51 10/06/22 07:51 10/06/22 07:51 10/06/22 07:51 10/06/22 07:51 10/06/22 07:51 10/06/22 01:06 Period Temp Pulse Resp BP Sys/Hernandez Pulse Ox O2 Del Method O2 Flow Rate Last 24 Hr 35.7 C-36.8 C 50-55 12-18 105-132/44-78 93-97 CPAP-Room Air 2-2 Intake and Output 10/06/22 10/06/22 10/06/22 03:59 11:59 19:59 Intake Total 50 1250 Output Total 500 Balance 50 750 Weight 112.491 kg Intake & Output: Intake & Output 10/06/22 10/06/22 10/06/22 03:59 11:59 19:59 Intake Total 50 1250 Output Total 500 Balance 50 750 Weight 112.491 kg Intake: IV 50 50 Merrem 1 gm In Sodium Chloride 50 50 0.9% 50 ml @ 100 mls/hr IV Q8H [facility] Rx#:[id number] Oral 1200 Output: Urine Catheter Amount 500 Other: Meal Breakfast Percent of Meal Consumed 100% Feeding Ability Independent Urine Color Dark Yellow Yellow Dark Yellow Urine Odor Normal Normal Stool Size Moderate Stool Color Brown Stool Consistency Soft Formed # Bowel Movements 1 Head Head exam: Present atraumatic and normal inspection Eye Eye exam: Present normal appearance ENT ENT exam: Present mucous membranes moist, normal exam and normal external ear exam Neck Neck exam: Present normal inspection Respiratory Respiratory exam: Present normal respiratory exam Cardiovascular Cardiovascular exam: Present normal rate and rhythm GI/Abdominal GI/Abdominal exam: Present normal bowel sounds Extremities Exam Extremities exam: Present full ROM; Absent normal inspection Additional comments: Right lower leg covered by wound dressing Back Exam Back exam: Present normal inspection Neurological Exam Neurological exam: Present alert and oriented X3 Skin Skin exam: Present warm; Absent intact Additional comments: Right lower leg covered by wound dressing OBJ DATA Labs 10/06/22 06:51 10/06/22 06:50 Labs: Abnormal Lab Results 10/06/22 10/06/22 10/05/22 06:51 06:50 05:24 RBC 3.51 L Hgb 11.0 L MCV 100.3 H Immature Gran % (Auto) 0.6 H 0.6 H Cameron # (Auto) 1.19 H 1.15 H Immature Gran # 0.06 H 0.06 H Carbon Dioxide 31 H Anion Gap 6.0 L BUN 27 H Creatinine 1.2 H AST Alkaline Phosphatase 30 L Total Protein 5.7 L Albumin 3.1 L Prealbumin 10/05/22 10/04/22 10/04/22 05:23 05:11 05:11 RBC 3.50 L Hgb MCV Immature Gran % (Auto) 0.9 H Cameron # (Auto) Immature Gran # 0.07 H Carbon Dioxide Anion Gap BUN 25 H Creatinine AST 33 H Alkaline Phosphatase 32 L 35 L Total Protein Albumin 3.1 L Prealbumin 10/04/22 05:10 RBC Hgb MCV Immature Gran % (Auto) Cameron # (Auto) Immature Gran # Carbon Dioxide Anion Gap BUN Creatinine AST Alkaline Phosphatase Total Protein Albumin Prealbumin 11.2 L Meds: Medications Acetaminophen (Acetaminophen 325 Mg Tablet) 650 mg PO Q6HP PRN; Protocol PRN Reason: Per Pain Protocol/Fever > 101 Last Admin: 10/05/22 16:29 Dose: 650 mg Hydrocodone Bitart/Acetaminophen (Hydrocodone/Apap 7.5/325mg Tablet) 1 tab PO TIDP PRN PRN Reason: Pain Last Admin: 10/06/22 09:10 Dose: 1 tab Albuterol Sulfate (Albuterol Sulfate 60 Puff Inhaler) 2 puff INH Q4HP PRN PRN Reason: bronchospasm Albuterol/Ipratropium (Ipratropium/Albuterol 3 Ml Ampul.Neb) 3 ml NEB Q4HRT PRN PRN Reason: Wheezing Atorvastatin Calcium (Atorvastatin 20 Mg Tablet) 20 mg PO QDAY CJ Last Admin: 10/06/22 08:46 Dose: 20 mg Brimonidine Tartrate (Brimonidine Ophth Drops 1 Gtt Bottle 5ml) 1 gtt OU BID [facility] Last Admin: 10/06/22 08:28 Dose: 2 drop Cetirizine HCl (Cetirizine 10 Mg Tablet) 10 mg PO DAILY [facility] Last Admin: 10/06/22 09:10 Dose: 10 mg Dextrose (Dextrose 50% 50 Ml Vial) 0 ml IV UD PRN PRN Reason: Per Sliding Scale Diagnostic Test (Pha) (Accu-Chek 1 Each Strip) 1 each FS ACHS [facility] Last Admin: 10/06/22 11:43 Dose: 1 each Docusate Sodium (Docusate Sodium 100 Mg Capsule) 100 mg PO BID [facility] Last Admin: 10/06/22 08:46 Dose: 100 mg Fenofibrate (Fenofibrate 43 Mg Capsule) 86 mg PO QDAY [facility] Last Admin: 10/06/22 08:47 Dose: 86 mg Folic Acid (Folic Acid 1 Mg Tablet) 1 mg PO QDAY [facility] Last Admin: 10/06/22 08:47 Dose: 1 mg Gabapentin (Gabapentin 100 Mg Capsule) 100 mg PO QID [facility] Last Admin: 10/06/22 08:47 Dose: 100 mg Glucose (Dextrose 31 Gm Oral.Susp) 15 gm PO PRN PRN PRN Reason: Hypoglycemia Heparin Sodium (Porcine) (Heparin 5,000 Unit/Ml Vial) 5,000 unit SQ Q12 [facility] Last Admin: 10/06/22 08:48 Dose: 5,000 unit Hydrochlorothiazide (Hydrochlorothiazide 25 Mg Tablet) 25 mg PO DAILY [facility] Last Admin: 10/06/22 08:46 Dose: 25 mg Meropenem 1 gm/ Sodium (Chloride) 50 mls @ 100 mls/hr IV Q8H [facility]; Protocol Last Infusion: 10/06/22 07:58 Dose: Infused Insulin Human Lispro (Insulin Lispro 1 Unit/0.01 Ml Unit) 0 unit SQ [facility]; Protocol Last Admin: 10/06/22 11:44 Dose: Not Given Lactulose (Lactulose 20 Gm/30 Ml Oral.Jo Ann) 10 gm PO DAILYP PRN PRN Reason: Constipation Latanoprost (Latanoprost Ophth Drops 2.5ml Bottle) 1 gtt OU QDAY [facility] Last Admin: 10/06/22 08:31 Dose: Not Given Levothyroxine Sodium (Levothyroxine 50 Mcg Tablet) 50 mcg PO QAMAC [facility] Last Admin: 10/06/22 07:57 Dose: 50 mcg Losartan Potassium (Losartan 50 Mg Tablet) 100 mg PO DAILY [facility] Last Admin: 10/06/22 08:47 Dose: 100 mg Magnesium Hydroxide (Magnesium Hydroxide 30 Ml Oral.Susp) 30 ml PO BIDP PRN PRN Reason: Constipation Magnesium Oxide (Magnesium Oxide 400 Mg Tablet) 400 mg PO BID [facility] Last Admin: 10/06/22 08:47 Dose: 400 mg Methocarbamol (Methocarbamol 750 Mg Tablet) 750 mg PO BID [facility] Last Admin: 10/06/22 08:46 Dose: 750 mg Morphine Sulfate (Morphine 4 Mg/Ml Vial) 4 mg IV Q4HP PRN; Protocol PRN Reason: Per Pain Protocol Last Admin: 10/05/22 16:30 Dose: 4 mg Naproxen (Naproxen 250 Mg Tablet) 250 mg PO Q12HP PRN PRN Reason: Pain Last Admin: 10/05/22 10:30 Dose: 250 mg Omeprazole (Omeprazole 20 Mg Capsule) 20 mg PO QAMAC [facility] Last Admin: 10/06/22 07:56 Dose: 20 mg Ondansetron HCl (Ondansetron 4 Mg/2 Ml Vial) 4 mg IV Q6HP PRN PRN Reason: Nausea And Vomiting Oxandrolone (Oxandrolone 10 Mg Tablet) 10 mg PO DAILY [facility] Last Admin: 10/06/22 09:10 Dose: 10 mg Oxybutynin Chloride (Oxybutynin Chloride 5 Mg Tab.Xl.24h) 5 mg PO QDAY [facility] Last Admin: 10/06/22 08:47 Dose: 5 mg Dorzolamide-Timolol [Cosopt] 22.3-6.8 Mg /Ml 1 dose OP BID [facility] Last Admin: 10/06/22 08:30 Dose: 1 dose Budesonide- Glycopyrolate- Formoterol 160/9/4. 8mcg 2 dose INH Q12 [facility] Last Admin: 10/06/22 09:12 Dose: 2 dose Polyethylene Glycol (Polyethylene Glycol 3350 17 Gm Packet) 17 gm PO DAILYP PRN PRN Reason: Constipation Senna (Sennosides 1 Tablet) 2 tab PO HS [facility] Last Admin: 10/05/22 20:16 Dose: 2 tab Sodium Chloride (0.9 % Sodium Chloride 10 Ml Syringe) 10 ml IV Q8 [facility] Last Admin: 10/06/22 05:47 Dose: Not Given Tramadol HCl (Tramadol 50 Mg Tablet) 50 mg PO TIDP PRN PRN Reason: pain Last Admin: 10/05/22 10:31 Dose: 50 mg Trazodone HCl (Trazodone Hcl 50 Mg Tablet) 25 mg PO HSP PRN PRN Reason: Insomnia A/P Assessment and plan (1) Cellulitis: Status: Chronic (2) COPD (chronic obstructive pulmonary disease): Status: Chronic (3) Hyperlipidemia: Status: Chronic Qualifiers: Hyperlipidemia type: unspecified Qualified Code(s): E78.5 - Hyperlipidemia, unspecified (4) Hypertension: Status: Chronic Qualifiers: Hypertension type: unspecified Qualified Code(s): I10 - Essential (primary) hypertension (5) Prediabetes: Status: Chronic (6) Hypothyroidism: Status: Chronic Qualifiers: Hypothyroidism type: unspecified Qualified Code(s): E03.9 - Hypothyroidism, unspecified (7) Chronic kidney disease (CKD) stage G3a/A1, moderately decreased glomerular filtration rate (GFR) between 45-59 mL/min/1.73 square meter and albuminuria creatinine ratio less than 30 mg/g: Status: Acute Narrative A/P Narrative: Assessment and Plans: 1. Right leg cellulitis: Inpatient med surg s/p repeat wound debridement by Dr. Cash. Daily mist therapy. Rest of the surgical management as per Dr. Negrete Tele-ID consultation, recs. appreciated cbc w/ auto diff daily Blood culture, no growth to date Intraoperative culture pending Lactic acid 1.4 Procalcitonin level 0.14 Continue meropenem while monitoring for culture results Physical therapy evaluation and treatment--->recs. SNF placement 2. Prediabetes: HgA1c 6.0 Hold oral hypoglycemics Insulin Lispro SSI AC HS Accu Check AC HS Hypoglycemia protocol Resume diabetic diet 3. Essential hypertension: Okay to resume oral antihypertensives 4. Hyperlipidemia: Resume statin therapy 5. COPD, stable: Resume bronchodilators 6. Hypothyroidism: Resume thyroid replacement therapy 7. Chronic kidney disease III: Avoid nephrotoxic agents Saline lock CMP in the morning to trend kidney functions GI ppx: not currently indicated DVT ppx: Heparin Code status: Full Prognosis: Stable Disposition: inpatient med surg; SNF Time Spent With Patient Time: Total time spent is greater than 50% in coordination of care (as documented) at patient's floor/unit and/or counseling patient: Subsequent: Total time with patient: 35 - 49 minutes
[2022-10-06] MEDS: traMADol 50 MG TABLET PO PRN (12:38)
[2022-10-06] MEDS: NAPROXEN 250 MG TABLET PO PRN (12:38)
[2022-10-06] MEDS: morphine 4 MG/ML VIAL IV PRN (13:26)
[2022-10-06] MEDS: SENNOSIDES 1 TABLET PO SCH (21:09)
[2022-10-06] MEDS: ACETAMINOPHEN 325 MG TABLET PO PRN (22:35)
[2022-10-07] MEDS: traMADol 50 MG TABLET PO PRN ×3 (02:37→20:36)
[2022-10-07] MEDS: NAPROXEN 250 MG TABLET PO PRN (02:38)
[2022-10-07] MEDS: 0.9 % SODIUM CHLORIDE 10 ML SYRINGE IV SCH ×3 (06:05→20:47)
[2022-10-07] MEDS: MEROPENEM 1 GM in 0.9 % SODIUM CHLORIDE 50 ML IV SCH ×3 (06:06→20:35)
[2022-10-07] MEDS: INSULIN LISPRO 1 UNIT/0.01 ML UNIT SQ SCH ×4 (07:05→20:37)
[2022-10-07] MEDS: HYDROCODONE/APAP 7.5/325MG TABLET PO PRN ×2 (07:05→13:05)
[2022-10-07] MEDS: LEVOTHYROXINE 50 MCG TABLET PO SCH (07:05)
[2022-10-07] MEDS: OMEPRAZOLE 20 MG CAPSULE PO SCH (07:05)
[2022-10-07 07:15] LABS: Basophils # (Auto) 0.08 K/mcL (0.00-0.30); Basophils % (Auto) 0.8 % (0.0-2.0); Eosinophils # (Auto) 0.58 K/mcL (0.00-0.70); Eosinophils % (Auto) 5.6 % (0.0-7.0); Hematocrit 34.7 % (34.1-44.9); Hemoglobin 11.1 g/dL (11.2-15.7); Lymphocytes # (Auto) 2.19 K/mcL (1.50-4.80); Lymphocytes % (Auto) 21.2 % (15.5-49.0); Mean Cell Volume 99.4 fL (80.0-100.0); Mean Platelet Volume 10.5 fL (8.8-12.5); Monocytes # (Auto) 1.23 K/mcL (0.10-0.90); Monocytes % (Auto) 11.9 % (1.0-12.0); Neutrophils % (Auto) 59.9 % (38.0-78.0); Platelet Count 353 K/mcL (140-440); RBC 3.49 M/mcL (3.59-5.38); Red Cell Distribution Width 12.8 % (11.5-14.5); WBC 10.3 K/mcL (4.5-11.0)
[2022-10-07 07:42] LABS: ALT/SGPT 16 U/L (<40); AST/SGOT 19 U/L (<32); Albumin/Globulin Ratio 1.1 (1.0-2.3); Alkaline Phosphatase 30 U/L (39-117); Bilirubin,Total 0.2 mg/dL (0.1-1.0); Blood Urea Nitrogen 27 mg/dL (8-23); Calcium 8.7 mg/dL (8.6-10.4); Carbon Dioxide 32 mmol/L (22-30); Chloride 101 mmol/L (96-108); Globulin 2.7 gm/dL (2.2-3.7); Glomerular Filtration Rate 56; Glucose 86 mg/dL (70-105)
[2022-10-07] MEDS: FENOFIBRATE 43 MG CAPSULE PO SCH (08:07)
[2022-10-07] MEDS: LOSARTAN 50 MG TABLET PO SCH (08:07)
[2022-10-07] MEDS: CETIRIZINE 10 MG TABLET PO SCH (08:07)
[2022-10-07] MEDS: ATORVASTATIN 20 MG TABLET PO SCH (08:07)
[2022-10-07] MEDS: OXANDROLONE 10 MG TABLET PO SCH (08:08)
[2022-10-07] MEDS: GABAPENTIN 100 MG CAPSULE PO SCH ×4 (08:08→20:36)
[2022-10-07] MEDS: FOLIC ACID 1 MG TABLET PO SCH (08:08)
[2022-10-07] MEDS: OXYBUTYNIN CHLORIDE 5 MG TAB.XL.24H PO SCH (08:08)
[2022-10-07] MEDS: DOCUSATE SODIUM 100 MG CAPSULE PO SCH ×2 (08:08→20:37)
[2022-10-07] MEDS: METHOCARBAMOL 750 MG TABLET PO SCH ×2 (08:08→20:37)
[2022-10-07] MEDS: MAGNESIUM OXIDE 400 MG TABLET PO SCH ×2 (08:08→20:37)
[2022-10-07] MEDS: HEPARIN 5,000 UNIT/ML VIAL SQ SCH ×2 (08:08→21:53)
[2022-10-07] MEDS: HYDROCHLOROTHIAZIDE 25 MG TABLET PO SCH (08:08)
[2022-10-07] MEDS: [UNRECOGNIZED DRUG - OTHER] INH SCH ×2 (08:09→20:38)
[2022-10-07] MEDS: LATANOPROST OPHTH DROPS 2.5ML BOTTLE OU SCH (08:09)
[2022-10-07] MEDS: DORZOLAMIDE TIMOLOL OP SCH ×2 (08:09→20:38)
[2022-10-07] MEDS: BRIMONIDINE OPHTH DROPS 1 GTT BOTTLE 5ML OU SCH ×2 (08:09→21:53)
--- NOTE | 2022-10-07 09:59 | Internal Med Progress Note ---
SUBJECTIVE Subjective Patient information: Note initiated : 10/07/22 at 9:55 am Service Date, if different from initiated Date: [] Patient: Lucero Magallanes a 72 y/o F admitted on 10/02/22 for referred for surgery. Chief Complaint: [] Interval history: Ms. Magallanes is a 72 year old F history of prediabetes, essential hypertensions, dyslipidemia, COPD, hypothyroidism, chronic kidney disease stage III, presenting with at least a month history of the right worse than left lower leg swelling and pain. She was in Dr. Chapa office earlier today and she was being referred to come to the hospital for surgery including incision and drainage. She is coming of 10 out of 10 pain of her right lower leg. She denies any fever chills or diaphoresis. There was a recent wound culture growing Staph aureus as well as Pseudomonas aeruginosa. Vital signs currently significant for tachycardia heart rate in the low 1 teens. 10/03: s/p repeat wound debridement by Dr. Cash earlier this morning. Cultures no growth to date. Patient is complaining of severe right lower leg pain. Denies fever, chills, or sweating. Continue meropenem while monitoring for culture results. Will start mist treatment tomorrow. Rest of the surgical management as per Dr. Negrete. Continue narcotics as needed for pain control. Physical therapy evaluation and treatment for placement pending. 10/04: Afebrile overnight. Cultures no growth to date. Patient is complaining of moderate right lower leg pain. Denies fever, chills, or sweating. Continue meropenem while monitoring for culture results. Will start mist treatment today. Rest of the surgical management as per Dr. Cash. Continue narcotics as needed for pain control. Physical therapy evaluation and treatment for placement pending. 10/05: Afebrile overnight. Cultures no growth to date. Patient is complaining of moderate right lower leg pain. Denies fever, chills, or sweating. Continue meropenem while monitoring for culture results. Pending tele-ID consultation. Continue daily mist therapy. Rest of the surgical management as per Dr. Cash. Continue narcotics as needed for pain control. Physical therapy evaluation and treatment for placement pending. 10/06: Afebrile overnight. Cultures no growth to date. Patient is complaining of moderate right lower leg pain. Denies fever, chills, or sweating. Physical therapist recs. SNF placement. Continue meropenem while monitoring for culture results. Pending tele-ID consultation. Continue daily mist therapy. Rest of the surgical management as per Dr. Cash. Continue narcotics as needed for pain control. Physical therapy evaluation and treatment for placement pending. 10/07: Afebrile overnight. Cultures no growth to date. Patient denies right lower leg pain. Denies fever, chills, or sweating. Tele-ID never called in. Continue meropenem while monitoring for culture results. Pending tele-ID consultation. Continue daily mist therapy. Rest of the surgical management as per Dr. Cash. Continue narcotics as needed for pain control. Physical therapy evaluation and treatment for placement pending. Constitutional Vitals: Vital Signs Temp Pulse Resp BP Pulse Ox O2 Del Method O2 Flow Rate 36.6 C 48 L 16 155/72 96 CPAP 2 10/07/22 08:17 10/07/22 08:17 10/07/22 08:17 10/07/22 08:17 10/07/22 08:17 10/07/22 08:17 10/06/22 01:06 Period Temp Pulse Resp BP Sys/Hernandez Pulse Ox O2 Del Method O2 Flow Rate Last 24 Hr 36.5 C-37.0 C 48-65 12-18 101-155/53-89 95-99 CPAP-Room Air Intake and Output 10/06/22 10/07/22 10/07/22 19:59 03:59 11:59 Intake Total 1010 450 50 Output Total 300 1075 Balance 710 -625 50 Weight 112.491 kg 112.718 kg Intake & Output: Intake & Output 10/06/22 10/07/22 10/07/22 19:59 03:59 11:59 Intake Total 1010 450 50 Output Total 300 1075 Balance 710 -625 50 Weight 112.491 kg 112.718 kg Intake: IV 50 50 50 Merrem 1 gm In Sodium Chloride 50 50 50 0.9% 50 ml @ 100 mls/hr IV Q8H [facility] Rx#:[id number] Oral 960 400 Output: Void Amount 300 1075 Other: Meal Lunch Percent of Meal Consumed 100% Feeding Ability Independent Urine Appearance Clear Clear Urine Color Dark Yellow Yellow Urine Odor Strong Normal Stool Size Moderate Stool Color Brown Stool Consistency Soft Formed # Bowel Movements 1 Head Head exam: Present atraumatic and normal inspection Eye Eye exam: Present normal appearance ENT ENT exam: Present mucous membranes moist, normal exam and normal external ear exam Neck Neck exam: Present normal inspection Respiratory Respiratory exam: Present normal respiratory exam Cardiovascular Cardiovascular exam: Present normal rate and rhythm GI/Abdominal GI/Abdominal exam: Present normal bowel sounds Extremities Exam Extremities exam: Absent normal inspection Additional comments: Right lower leg covered by wound dressing Back Exam Back exam: Present normal inspection Neurological Exam Neurological exam: Present alert and oriented X3 Skin Skin exam: Present warm; Absent intact Additional comments: Right lower leg covered by wound dressing OBJ DATA Labs 10/07/22 05:59 10/07/22 05:59 Labs: Abnormal Lab Results 10/07/22 10/07/22 10/06/22 05:59 05:59 06:51 RBC 3.49 L 3.51 L Hgb 11.1 L 11.0 L MCV 100.3 H Immature Gran % (Auto) 0.6 H 0.6 H Dade # (Auto) 1.23 H 1.19 H Immature Gran # 0.06 H 0.06 H Carbon Dioxide 32 H Anion Gap 5.0 L BUN 27 H Creatinine Alkaline Phosphatase 30 L Total Protein 5.7 L Albumin 3.0 L 10/06/22 10/05/22 10/05/22 06:50 05:24 05:23 RBC Hgb MCV Immature Gran % (Auto) 0.6 H Dade # (Auto) 1.15 H Immature Gran # 0.06 H Carbon Dioxide 31 H Anion Gap 6.0 L BUN 27 H 25 H Creatinine 1.2 H Alkaline Phosphatase 30 L 32 L Total Protein 5.7 L Albumin 3.1 L Meds: Medications Acetaminophen (Acetaminophen 325 Mg Tablet) 650 mg PO Q6HP PRN; Protocol PRN Reason: Per Pain Protocol/Fever > 101 Last Admin: 10/06/22 22:35 Dose: 650 mg Hydrocodone Bitart/Acetaminophen (Hydrocodone/Apap 7.5/325mg Tablet) 1 tab PO TIDP PRN PRN Reason: Pain Last Admin: 10/07/22 07:05 Dose: 1 tab Albuterol Sulfate (Albuterol Sulfate 60 Puff Inhaler) 2 puff INH Q4HP PRN PRN Reason: bronchospasm Albuterol/Ipratropium (Ipratropium/Albuterol 3 Ml Ampul.Neb) 3 ml NEB Q4HRT PRN PRN Reason: Wheezing Atorvastatin Calcium (Atorvastatin 20 Mg Tablet) 20 mg PO QDAY [facility] Last Admin: 10/07/22 08:07 Dose: 20 mg Brimonidine Tartrate (Brimonidine Ophth Drops 1 Gtt Bottle 5ml) 1 gtt OU BID [facility] Last Admin: 10/07/22 08:09 Dose: 2 drop Cetirizine HCl (Cetirizine 10 Mg Tablet) 10 mg PO DAILY [facility] Last Admin: 10/07/22 08:07 Dose: 10 mg Dextrose (Dextrose 50% 50 Ml Vial) 0 ml IV UD PRN PRN Reason: Per Sliding Scale Diagnostic Test (Pha) (Accu-Chek 1 Each Strip) 1 each FS ACHS [facility] Last Admin: 10/07/22 07:05 Dose: 1 each Docusate Sodium (Docusate Sodium 100 Mg Capsule) 100 mg PO BID [facility] Last Admin: 10/07/22 08:08 Dose: 100 mg Fenofibrate (Fenofibrate 43 Mg Capsule) 86 mg PO QDAY [facility] Last Admin: 10/07/22 08:07 Dose: 86 mg Folic Acid (Folic Acid 1 Mg Tablet) 1 mg PO QDAY [facility] Last Admin: 10/07/22 08:08 Dose: 1 mg Gabapentin (Gabapentin 100 Mg Capsule) 100 mg PO QID [facility] Last Admin: 10/07/22 08:08 Dose: 100 mg Glucose (Dextrose 31 Gm Oral.Susp) 15 gm PO PRN PRN PRN Reason: Hypoglycemia Heparin Sodium (Porcine) (Heparin 5,000 Unit/Ml Vial) 5,000 unit SQ Q12 [facility] Last Admin: 10/07/22 08:08 Dose: 5,000 unit Hydrochlorothiazide (Hydrochlorothiazide 25 Mg Tablet) 25 mg PO DAILY [facility] Last Admin: 10/07/22 08:08 Dose: 25 mg Meropenem 1 gm/ Sodium (Chloride) 50 mls @ 100 mls/hr IV Q8H [facility]; Protocol Last Infusion: 10/07/22 06:55 Dose: Infused Insulin Human Lispro (Insulin Lispro 1 Unit/0.01 Ml Unit) 0 unit SQ ACHS [facility]; Protocol Last Admin: 10/07/22 07:05 Dose: Not Given Lactulose (Lactulose 20 Gm/30 Ml Oral.Jo Ann) 10 gm PO DAILYP PRN PRN Reason: Constipation Latanoprost (Latanoprost Ophth Drops 2.5ml Bottle) 1 gtt OU QDAY [facility] Last Admin: 10/07/22 08:09 Dose: Not Given Levothyroxine Sodium (Levothyroxine 50 Mcg Tablet) 50 mcg PO QAMAC [facility] Last Admin: 10/07/22 07:05 Dose: 50 mcg Losartan Potassium (Losartan 50 Mg Tablet) 100 mg PO DAILY [facility] Last Admin: 10/07/22 08:07 Dose: 100 mg Magnesium Hydroxide (Magnesium Hydroxide 30 Ml Oral.Susp) 30 ml PO BIDP PRN PRN Reason: Constipation Magnesium Oxide (Magnesium Oxide 400 Mg Tablet) 400 mg PO BID [facility] Last Admin: 10/07/22 08:08 Dose: 400 mg Methocarbamol (Methocarbamol 750 Mg Tablet) 750 mg PO BID [facility] Last Admin: 10/07/22 08:08 Dose: 750 mg Morphine Sulfate (Morphine 4 Mg/Ml Vial) 4 mg IV Q4HP PRN; Protocol PRN Reason: Per Pain Protocol Last Admin: 10/06/22 13:26 Dose: 4 mg Naproxen (Naproxen 250 Mg Tablet) 250 mg PO Q12HP PRN PRN Reason: Pain Last Admin: 10/07/22 02:38 Dose: 250 mg [facility]eprazole ([facility] 20 Mg [facility]apsule) [facility] Admin: 10/07/22 07:05 Dose: 20 mg Ondansetron HCl (Ondansetron 4 Mg/2 Ml Vial) 4 mg IV Q6HP PRN PRN Reason: Nausea And Vomiting Oxandrolone (Oxandrolone 10 Mg Tablet) 10 mg PO DAILY [facility] Last Admin: 10/07/22 08:08 Dose: 10 mg Oxybutynin Chloride (Oxybutynin Chloride 5 Mg Tab.Xl.24h) 5 mg PO QDAY [facility] Last Admin: 10/07/22 08:08 Dose: 5 mg Dorzolamide-Timolol [Cosopt] 22.3-6.8 Mg /Ml 1 dose OP BID [facility] Last Admin: 10/07/22 08:09 Dose: 1 dose Budesonide- Glycopyrolate- Formoterol 160/9/4. 8mcg 2 dose INH Q12 [facility] Last Admin: 10/07/22 08:09 Dose: 2 dose Polyethylene Glycol (Polyethylene Glycol 3350 17 Gm Packet) 17 gm PO DAILYP PRN PRN Reason: Constipation Senna (Sennosides 1 Tablet) 2 tab PO HS [facility] Last Admin: 10/06/22 21:09 Dose: Not Given Sodium Chloride (0.9 % Sodium Chloride 10 Ml Syringe) 10 ml IV Q8 [facility] Last Admin: 10/07/22 06:05 Dose: 10 ml Tramadol HCl (Tramadol 50 Mg Tablet) 50 mg PO TIDP PRN PRN Reason: pain Last Admin: 10/07/22 02:37 Dose: 50 mg Trazodone HCl (Trazodone Hcl 50 Mg Tablet) 25 mg PO HSP PRN PRN Reason: Insomnia A/P Assessment and plan (1) Cellulitis: Status: Chronic (2) COPD (chronic obstructive pulmonary disease): Status: Chronic (3) Hyperlipidemia: Status: Chronic Qualifiers: Hyperlipidemia type: unspecified Qualified Code(s): E78.5 - Hyperlipidemia, unspecified (4) Hypertension: Status: Chronic Qualifiers: Hypertension type: unspecified Qualified Code(s): I10 - Essential (primary) hypertension (5) Prediabetes: Status: Chronic (6) Hypothyroidism: Status: Chronic Qualifiers: Hypothyroidism type: unspecified Qualified Code(s): E03.9 - Hypothyroidism, unspecified (7) Chronic kidney disease (CKD) stage G3a/A1, moderately decreased glomerular filtration rate (GFR) between 45-59 mL/min/1.73 square meter and albuminuria creatinine ratio less than 30 mg/g: Status: Acute Narrative A/P Narrative: Assessment and Plans: 1. Right leg cellulitis: Inpatient med surg s/p repeat wound debridement by Dr. Cash. Daily mist therapy. Rest of the surgical management as per Dr. Negrete Tele-ID consultation, recs. appreciated cbc w/ auto diff daily Blood culture, no growth to date Intraoperative culture pending Lactic acid 1.4 Procalcitonin level 0.14 Continue meropenem while monitoring for culture results Physical therapy evaluation and treatment--->recs. SNF placement 2. Prediabetes: HgA1c 6.0 Hold oral hypoglycemics Insulin Lispro SSI AC HS Accu Check AC HS Hypoglycemia protocol Resume diabetic diet 3. Essential hypertension: Okay to resume oral antihypertensives 4. Hyperlipidemia: Resume statin therapy 5. COPD, stable: Resume bronchodilators 6. Hypothyroidism: Resume thyroid replacement therapy 7. Chronic kidney disease III: Avoid nephrotoxic agents Saline lock CMP in the morning to trend kidney functions GI ppx: not currently indicated DVT ppx: Heparin Code status: Full Prognosis: Stable Disposition: inpatient med surg; SNF Time Spent With Patient Time: Total time spent is greater than 50% in coordination of care (as documented) at patient's floor/unit and/or counseling patient: Subsequent: Total time with patient: 35 - 49 minutes
[2022-10-07] MEDS: morphine 4 MG/ML VIAL IV PRN (13:43)
[2022-10-07] MEDS: ACETAMINOPHEN 325 MG TABLET PO PRN (14:24)
[2022-10-07] MEDS: guaiFENesin 600 MG TAB.SR.12H PO SCH (20:43)
[2022-10-07] MEDS: SENNOSIDES 1 TABLET PO SCH (21:53)
[2022-10-08] MEDS: MEROPENEM 1 GM in 0.9 % SODIUM CHLORIDE 50 ML IV SCH (04:49)
[2022-10-08] MEDS: HYDROCODONE/APAP 7.5/325MG TABLET PO PRN (04:49)
[2022-10-08] MEDS: 0.9 % SODIUM CHLORIDE 10 ML SYRINGE IV SCH ×2 (04:50→14:14)
[2022-10-08] MEDS: OMEPRAZOLE 20 MG CAPSULE PO SCH (07:39)
[2022-10-08] MEDS: INSULIN LISPRO 1 UNIT/0.01 ML UNIT SQ SCH ×2 (07:40→11:12)
[2022-10-08] MEDS: LEVOTHYROXINE 50 MCG TABLET PO SCH (07:40)
[2022-10-08] MEDS: NAPROXEN 250 MG TABLET PO PRN (08:29)
[2022-10-08] MEDS: guaiFENesin 600 MG TAB.SR.12H PO SCH (08:51)
[2022-10-08] MEDS: ATORVASTATIN 20 MG TABLET PO SCH (08:51)
[2022-10-08] MEDS: CETIRIZINE 10 MG TABLET PO SCH (08:51)
[2022-10-08] MEDS: GABAPENTIN 100 MG CAPSULE PO SCH ×2 (08:51→14:19)
[2022-10-08] MEDS: METHOCARBAMOL 750 MG TABLET PO SCH (08:52)
[2022-10-08] MEDS: LOSARTAN 50 MG TABLET PO SCH (08:52)
[2022-10-08] MEDS: FENOFIBRATE 43 MG CAPSULE PO SCH (08:52)
[2022-10-08] MEDS: OXYBUTYNIN CHLORIDE 5 MG TAB.XL.24H PO SCH (08:53)
[2022-10-08] MEDS: FOLIC ACID 1 MG TABLET PO SCH (08:53)
[2022-10-08] MEDS: OXANDROLONE 10 MG TABLET PO SCH (08:53)
[2022-10-08] MEDS: MAGNESIUM OXIDE 400 MG TABLET PO SCH (08:54)
[2022-10-08] MEDS: DOCUSATE SODIUM 100 MG CAPSULE PO SCH (08:55)
[2022-10-08] MEDS: HEPARIN 5,000 UNIT/ML VIAL SQ SCH (08:56)
[2022-10-08] MEDS: [UNRECOGNIZED DRUG - OTHER] INH SCH (08:56)
[2022-10-08] MEDS: LATANOPROST OPHTH DROPS 2.5ML BOTTLE OU SCH (08:56)
[2022-10-08] MEDS: HYDROCHLOROTHIAZIDE 25 MG TABLET PO SCH (08:56)
[2022-10-08] MEDS: DORZOLAMIDE TIMOLOL OP SCH (08:56)
[2022-10-08] MEDS: BRIMONIDINE OPHTH DROPS 1 GTT BOTTLE 5ML OU SCH (08:57)
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
[2022-10-08] MEDS: traMADol 50 MG TABLET PO PRN (11:05)
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
[2022-10-09] MEDS ORDERED: SILVER SULFADIAZINE CREAM.TOP 25GM TOPICAL SCH (09:00)
[2022-10-10] MEDS ORDERED: NON FORMULARY MEDICATION 1 DOSE MISCELL (Cholecalciferol (Vitamin D3) 1,250 mcg (50,000 un PO SCH (09:00)
== END 2022-10-08 15:30 | DRG 934 ==
LOC: ED 19:06 → MEDSUR 21:39
PROVIDERS: ADMIT Internal Medicine; ATTEND Internal Medicine

== ENCOUNTER 2025-02-15 15:46 | Inpatient (IN) ==
[2025-02-15] MEDS ORDERED: IOPAMIDOL 100 ML BOTTLE IV ONE (15:47)
[2025-02-15 17:57] LABS: Basophils # (Auto) 0.04 K/mcL (0.00-0.30); Basophils % (Auto) 0.2 % (0.0-2.0); Eosinophils # (Auto) 0 K/mcL (0.00-0.70); Eosinophils % (Auto) 0 % (0.0-7.0); Hematocrit 32.9 % (34.1-44.9); Hemoglobin 10.6 g/dL (11.2-15.7); Lymphocytes # (Auto) 1.51 K/mcL (1.50-4.80); Lymphocytes % (Auto) 9.2 % (15.5-49.0); Mean Corpuscular HGB Conc 32.2 g/dL (31.0-36.0); Monocytes # (Auto) 1.72 K/mcL (0.10-0.90); Monocytes % (Auto) 10.4 % (1.0-12.0); Neutrophils % (Auto) 79.3 % (38.0-78.0); Platelet Count 225 K/mcL (140-440); RBC 3.09 M/mcL (3.59-5.38); WBC 16.5 K/mcL (4.5-11.0)
[2025-02-15 18:16] LABS: Anion Gap 13.0 (8.0-16.0); Blood Urea Nitrogen 18 mg/dL (8-23); Calcium 8.0 mg/dL (8.6-10.4); Carbon Dioxide 23 mmol/L (22-30); Chloride 102 mmol/L (96-108); Glucose 120 mg/dL (70-105); Potassium 3.7 mmol/L (3.3-5.1); Sodium 138 mmol/L (133-145)
[2025-02-15] MEDS: 0.9 % SODIUM CHLORIDE 1,000 ML IV ONE (19:34)
[2025-02-15] MEDS: PIPERACILLIN SODIUM/TAZOBACTAM 3.375 GM in DEXTROSE 5% IN WATER 50 ML IV ONE (20:33)
[2025-02-15] MEDS: ONDANSETRON 4 MG/2 ML VIAL IV ONE (21:12)
[2025-02-15] MEDS ORDERED: LIDOCAINE 2% PF 5 ML VIAL ONE (21:13)
[2025-02-15] MEDS ORDERED: PROPOFOL 200 MG/20 ML VIAL IV ONE (21:13)
[2025-02-15] MEDS ORDERED: DEXAMETHASONE 10 MG/ML VIAL ONE (21:13)
[2025-02-15] MEDS ORDERED: ONDANSETRON 4 MG/2 ML VIAL ONE (21:13)
[2025-02-15 21:25] LABS: INR 1.0 (0.9-1.1); Prothrombin Time 14.3 sec (11.9-14.5)
[2025-02-15] MEDS ORDERED: NALOXONE HCL 0.4 MG/ML VIAL IV PRN (21:55)
[2025-02-15] MEDS ORDERED: IPRATROPIUM/ALBUTEROL 3 ML AMPUL.NEB NEB PRN (21:55)
[2025-02-15] MEDS ORDERED: MEPERIDINE 25 MG/ML VIAL IV PRN (21:55)
[2025-02-15] MEDS ORDERED: LACTATED RINGERS 250 ML IV PRN (21:55)
[2025-02-15] MEDS ORDERED: diphenhydrAMINE 50 MG/ML VIAL IV PRN (21:55)
[2025-02-15] MEDS ORDERED: fentaNYL 100 MCG/2 ML VIAL IV PRN (21:55)
[2025-02-15] MEDS ORDERED: ONDANSETRON 4 MG/2 ML VIAL IV PRN ×2 (21:55→22:32)
[2025-02-15] MEDS ORDERED: PIPERACILLIN SODIUM/TAZOBACTAM 3.375 GM in DEXTROSE 5% IN WATER 100 ML IV SCH (22:45)
[2025-02-15] MEDS: DEXTROSE 5%-LR 1,000 ML IV SCH (23:00)
[2025-02-15] MEDS: VANCOMYCIN PER PHARMACY IV ONE (23:19)
[2025-02-15] MEDS: PIPERACILLIN SODIUM/TAZOBACTAM 3.375 GM in DEXTROSE 5% IN WATER 100 ML IV SCH (23:19)
[2025-02-15] MEDS: VANCOMYCIN 1,000 MG in 0.9 % SODIUM CHLORIDE 250 ML IV ONE (23:19)
[2025-02-15] MEDS: LACTATED RINGERS 1,000 ML IV SCH (23:25)
[2025-02-15] MEDS: ACETAMINOPHEN 1,000 MG/100 ML BAG IV ONE (23:25)
[2025-02-16] MEDS ORDERED: VANCOMYCIN PER PHARMACY IV SCH (08:30)
[2025-02-16] MEDS: PIPERACILLIN SODIUM/TAZOBACTAM 4.5 GM in DEXTROSE 5% IN WATER 100 ML IV SCH (08:49)
[2025-02-16] MEDS: VANCOMYCIN 500 MG in 0.9 % SODIUM CHLORIDE 100 ML IV ONE (09:29)
[2025-02-16] MEDS: IPRATROPIUM/ALBUTEROL 3 ML AMPUL.NEB NEB PRN (16:20)
[2025-02-16] MEDS: VANCOMYCIN 1,750 MG in 0.9 % SODIUM CHLORIDE 500 ML IV SCH (17:21)
[2025-02-16] MEDS: METOPROLOL SUCCINATE 25 MG TAB.XL.24H PO SCH (20:47)
[2025-02-16] MEDS: BRIMONIDINE OPHTH DROPS 1 GTT BOTTLE 5ML OD SCH (21:47)
[2025-02-16] MEDS: BUDESONIDE 160 MCG INH SCH (21:47)
[2025-02-16] MEDS: GLYCOPYRROLATE INH SCH (21:47)
[2025-02-16] MEDS: LATANOPROST OPHTH DROPS 2.5ML BOTTLE OD SCH (21:47)
[2025-02-16] MEDS: Dorzolamide-Timolol [Cosopt] 22.3-6.8 mg/mL drops OD SCH (21:47)
[2025-02-16] MEDS: FORMOTEROL INH SCH (21:47)
[2025-02-17 06:02] LABS: Hematocrit 32.0 % (34.1-44.9); Hemoglobin 10.2 g/dL (11.2-15.7); Mean Corpuscular HGB Conc 31.9 g/dL (31.0-36.0); Platelet Count 234 K/mcL (140-440); RBC 2.98 M/mcL (3.59-5.38); WBC 12.5 K/mcL (4.5-11.0)
[2025-02-17 06:24] LABS: Anion Gap 11.0 (8.0-16.0); Blood Urea Nitrogen 16 mg/dL (8-23); Calcium 7.6 mg/dL (8.6-10.4); Carbon Dioxide 23 mmol/L (22-30); Chloride 102 mmol/L (96-108); Glucose 156 mg/dL (70-105); Potassium 3.7 mmol/L (3.3-5.1); Sodium 136 mmol/L (133-145)
[2025-02-17] MEDS: ALBUTEROL SULFATE 60 PUFF INHALER INH PRN (08:34)
[2025-02-17] MEDS: ATORVASTATIN 20 MG TABLET PO SCH (08:35)
[2025-02-17] MEDS: OLMESARTAN MEDOXOMIL 20 MG TABLET PO SCH (08:35)
[2025-02-17] MEDS: OMEPRAZOLE 20 MG CAPSULE PO SCH (08:35)
[2025-02-17] MEDS: LEVOTHYROXINE 50 MCG TABLET PO SCH (08:35)
[2025-02-17] MEDS: FUROSEMIDE 20 MG TABLET PO SCH (08:35)
[2025-02-17] MEDS: SPIRONOLACTONE 25 MG TABLET PO SCH (08:42)
[2025-02-17] MEDS: HYDROmorphone 0.5 MG/0.5 ML SYRINGE IV PRN (12:47)
[2025-02-17] MEDS: VANCOMYCIN 500 MG in 0.9 % SODIUM CHLORIDE 100 ML IV ONE (18:33)
[2025-02-18] MEDS: FUROSEMIDE 20 MG/2 ML VIAL IV ONE (09:27)
[2025-02-18 09:28] VITALS: O2SAT 95
[2025-02-18 11:35] VITALS: TEMP 97
[2025-02-18] MEDS: VANCOMYCIN 1,500 MG in 0.9 % SODIUM CHLORIDE 500 ML IV SCH (13:07)
== END 2025-02-18 13:40 | disposition home or self-care (01) | DRG 580 ==
LOC: ED 15:46 → SUR 21:16 → MEDSUR 21:16 → SUR 21:19
PROVIDERS: ADMIT Surgery Surgical Critical Care; ATTEND Surgery Surgical Critical Care